=== PATIENT | male | born 1955 | race Caucasian/White ===

== ENCOUNTER 2018-07-27 14:49 | Inpatient (IN) | payer BC ==
[2018-07-27] MEDS ORDERED: Metoclopramide IV* 5 MG/ML 2 ML VIAL IV SLOW PU ONE (15:17)
[2018-07-27] MEDS ORDERED: Famotidine IV * 20 MG in NS 0.9% 100 ML* 100 ML IVPB ONE (15:17)
--- NOTE | 2018-07-27 15:29 | ED ---
Neurological HPI - HPI Summary HPI Summary: Pt is a 62 y/o M presenting to the ED with a chief complaint of a neurological deficit. He states he had an MRI around noontime yesterday, and his PCP called him to inform the patient that he found a prior stroke, and that he is at risk for another. The pt originally had an MRI done because he was having intermittent vision issues with his eyes crossing and vision becoming blurry, lasting a couple of minutes at a time for 1 month. Today, the pt reports he was lethargic, as confirmed by his who stated he has been falling asleep all day, and he became nauseous. When he had his last stroke, the only symptom he experienced was nausea and he couldnt keep anything down that he tried to eat. He also has unsteady gait, onset about 1 week ago described as his head not being coordinated with his body. MONTSE MILLER CALLED: [id number]. Last known well this morning, 07/27/18 0800. The patient states that the sx he has today are not new. They have happened before and they are not acute, so the brain CT will still be done but it will not be as emergently done as a montse miller would have been. - History of Current Complaint Chief Complaint: EDNeurologicalDeficit Stated Complaint: NAUSEA LETHARGIC AND DIZZY PER PT Time Seen by Provider: 07/27/18 14:55 Last Known Well Date: 07/27/18 0800 Hx Obtained From: Patient Onset/Duration: Gradual Onset, Started weeks ago, Still Present Timing: Constant Onset Severity: Moderate Neurological Deficit Location: Generalized Pain Intensity: 0 Pain Scale Used: 0-10 Numeric Character: Motor Weakness, Lethargy, Visual Changes Aggravating: Nothing Alleviating: Nothing Associated Signs and Symptoms: Positive: Unsteady Gait, Visual Changes, Nausea/ Vomiting TPA Considered: No - Allergy/Home Medications Allergies/Adverse Reactions: Allergies Allergy/AdvReac Type Severity Reaction Status Date / Time No Known Allergies Allergy Verified 07/21/18 10:36 Home Medications: Home Medications Atorvastatin* [Lipitor*] 40 mg PO DAILY 07/27/18 [History Confirmed 07/27/18] Benzonatate CAP* [Tessalon 100 MG CAP*] 200 mg PO TID PRN 07/27/18 [History Confirmed 07/27/18] Lisinopril/HCTZ (NF) [Zestoretic 11/25.(NF)] 1 tab PO DAILY 07/27/18 [ History Confirmed 07/27/18] PMH/Surg Hx/FS Hx/Imm Hx Previously Healthy: Yes Endocrine/Hematology History: Denies: Hx Diabetes Cardiovascular History: Reports: Hx Hypertension - CONTROLLED BY MEDICATION Denies: Hx Pacemaker/ICD History: Denies: Hx Renal Disease Sensory History: Denies: Hx Hearing Aid Psychiatric History: Denies: Hx Panic Disorder - Surgical History Surgery Procedure, Year, and Place: TEETH REMOVED Infectious Disease History: No Infectious Disease History: Denies: Traveled Outside the [place] in Last 30 Days - Family History Known Family History: Negative: Cardiac Disease - Social History Lives: With Family Hx Substance Use: No Substance Use Type: Reports: None Review of Systems Positive: Blurred Vision, Other - eyes crossing Positive: Nausea Positive: Other - unsteady gait Neurological: Other - lethargy All Other Systems Reviewed And Are Negative: Yes Physical Exam - Summary Physical Exam Summary: Constitutional: Well-developed, Well-nourished, Alert. (-) Distressed Skin: Warm, Dry HENT: Normocephalic; Atraumatic Eyes: Conjunctiva normal Neck: Musculoskeletal ROM normal neck. (-) JVD, (-) Stridor, (-) Tracheal deviation Cardio: Rhythm regular, rate normal, Heart sounds normal; Intact distal pulses; The pedal pulses are 2+ and symmetric. Radial pulses are 2+ and symmetric. Pulmonary/Chest wall: Effort normal. (-) Respiratory distress, (-) Wheezes, (-) Rales Abd: Soft, (-) tenderness, (-) Distension, (-) Guarding, (-) Rebound Musculoskeletal: (-) Edema Neuro: Alert, Oriented x3, no dysmetria, [id number] intact, cranial nerves II-XII grossly intact, sensation intact. Psych: Mood and affect Normal Triage Information Reviewed: Yes Vital Signs On Initial Exam: Initial Vitals Temp Pulse Resp BP Pulse Ox 98.8 F 53 18 202/92 99 07/27/18 14:52 07/27/18 14:52 07/27/18 14:52 07/27/18 14:52 07/27/18 14:52 Vital Signs Reviewed: Yes - Benoit Coma Scale Best Eye Response: 4 - Spontaneous Best Motor Response: 6 - Obeys Commands Best Verbal Response: 5 - Oriented Coma Scale Total: 15 Diagnostics - Vital Signs Vital Signs Temp Pulse Resp BP Pulse Ox 07/27/18 14:52 98.8 F 53 18 202/92 99 - Laboratory Result Diagrams: 07/27/18 15:30 07/27/18 15:29 Lab Statement: Any lab studies that have been ordered have been reviewed, and results considered in the medical decision making process. - Radiology CXR Radiology Interpretation Completed By: Radiologist Summary of Radiographic Findings: No radiographic evidence for acute cardiopulmonary abnormality on this portable chest x-ray. ED physician has reviewed this report. - CT Brain CT CT Interpretation Completed By: Radiologist Summary of CT Findings: MULTIFOCAL HYPOATTENUATION OF THE LEFT INFERIOR CEREBELLUM CONSISTENT WITH SUBACUTE INFARCT NOTED ON PREVIOUS MRI. ED physician has reviewed this report. - EKG 1616 Cardiac Rate: Bradycardia - 53bpm EKG Rhythm: Sinus Bradycardia ST Segment: Normal Ectopy: None Summary of EKG Findings: EKG at 1616 shows sinus bradycardia at 53bpm with no STEMI. 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 Non-Paretic Hand: Both Correctly Best Gaze (Only Horizontal Eye Movement): Normal Visual Field Testing: No Visual Loss Facial Paresis-Pt to Smile & Close Eyes or Grimace Symmetry: Normal/Symmetrical Motor Function - Right Arm: No Drift-Holds 10 Seconds Motor Function - Left Arm: No Drift-Holds 10 Seconds Motor Function - Right Leg: No Drift-Holds 10 Seconds Motor Function - Left Leg: No Drift-Holds 10 Seconds Limb Ataxia-Must be out of Proportion to Weakness Present: Absent Sensory (Use Pinprick to Test Arms/Legs/Trunk/Face): Normal Best Language (Describe Picture, Name Items): No Aphasia Dysarthria (Read Several Words): Normal Extinction and Inattention: No Abnormality Total Score: 0 Course/Dx - Course Course Of Treatment: Pt is a 62 y/o M presenting to the ED with a chief complaint of a neurological deficit. He states he had an MRI around noontime yesterday, and his PCP called him to inform the patient that he found a prior stroke, and that he is at risk for another. The pt originally had an MRI done because he was having intermittent vision issues with his eyes crossing and vision becoming blurry, lasting a couple of minutes at a time for 1 month. Today, the pt reports he was lethargic, as confirmed by his who stated he has been falling asleep all day, and he became nauseous. When he had his last stroke, the only symptom he experienced was nausea and he couldnt keep anything down that he tried to eat. He also has unsteady gait, onset about 1 week ago described as his head not being coordinated with his body. MONTSE MILLER CALLED: [id number]. Last known well this morning, 07/27/18 0800. The patient states that the sx he has today are not new. They have happened before and they are not acute, so the brain CT will still be done but it will not be as emergently done as a montse miller would have been. Pt's physical exam is normal. CXR shows: No radiographic evidence for acute cardiopulmonary abnormality on this portable chest x-ray. Brain CT shows: MULTIFOCAL HYPOATTENUATION OF THE LEFT INFERIOR CEREBELLUM CONSISTENT WITH SUBACUTE INFARCT NOTED ON PREVIOUS MRI. EKG at 1616 shows sinus bradycardia at 53bpm with no STEMI. Head CTA shows: 1. 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 This corresponds to the arterial distribution to the left cerebellum where multifocal infarcts were identified on the previous day's MRI. 2. 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 This could be due to thrombotic occlusion or congenital absence. 3. There is mixed attenuation atherosclerosis at the bilateral carotid bulbs extending into the inferior portions of the bilateral internal carotid arteries causing approximately 43% degree narrowing on the right and 50 % degree narrowing on the left according to NASCET criteria. Pt will be admitted to Dr. Marin for further workup with dx of CVA. - Diagnoses Provider Diagnoses: CVA (cerebrovascular accident) Discharge - Sign-Out/Discharge Documenting (check all that apply): Patient Departure - Discharge Plan Condition: Stable Disposition: ADMITTED TO [facility] Referrals: Noah Ly MD [Primary Care Provider] - - Attestation Statements Document Initiated by Scribe: Yes Documenting Scribe: Dolly Atkinson Provider For Whom Scribe is Documenting (Include Credential): Neal Cosme MD. Scribe Attestation: Dolly Fox, scribed for Neal Cosme MD. on 07/27/18 at 1857. Consult Consult: 1840 - The pt will be admitted to Dr. Marin for further evaluation and workup. 1856 - Spoke with Dr. Pulido who accepts for admission.
--- OUTSIDE RECORDS SUMMARY | 2018-07-27 15:29 | XMS REPORT | Continuity of Care Document ---
:1955 External Reference #:[id number] Author Name Noah Ly MD Address [address] [place] [address] Care Team Providers Name Role Phone Noah Ly MD Care Team Information Shove Up Unavailable Payers Date Identification Numbers Payment Provider Subscriber Policy Number: [id number] [employer] Faraz Kapoor Group Name: [facility] 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 Tobacco Use Start: Unknown current cigarette 1 ppd smoker ETOH Use Currently consumes 3-4 drinks many weeks alcohol Exercise [facility] [employer] Type/Frequency ref. 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[employer] 100mg Capsules Benzonatate 1 by mouth 45caps J20.9 Noah Aliyah, 07/12/2018 - 200mg three times a MD 07/17/2018 Capsules day for cough Immunizations CPT Code Status Date Vaccine Lot # [id number] Given 11/12/2016 Influenza Virus Vaccine, Quadrivalent, 3 Yr > [id number] Quad, Preserv Free [id number] Given 02/14/2009 Tdap (Adacel) Vital Signs Date Vital Result Comment 07/21/2018 4:29pm Weight 158.00 lb Weight 71.669 kg BP Systolic 124 mmHg BP Diastolic 70 mmHg Heart Rate 56 /min Body Temperature 98.3 F Respiratory Rate 16 /min O2 % BldC Oximetry 98 % 07/12/2018 9:33am Weight 165.00 lb Weight 74.844 kg BP Systolic 112 mmHg BP Diastolic 64 mmHg Heart Rate 68 /min Body Temperature 98.0 F Respiratory Rate 14 /min 12/26/2017 12:57pm Weight 168.00 lb Weight 76.205 kg BP Systolic 118 mmHg BP Diastolic 60 mmHg Heart Rate 62 /min Body Temperature 97.4 F Respiratory Rate 16 /min Height 67.5 inches 5'7.50" BMI (Body Mass Index) 25.9 kg/m2 O2 % BldC Oximetry 97 % 11/15/2017 10:35am Weight 174.00 lb Weight 78.926 kg BP Systolic 140 mmHg BP Diastolic 80 mmHg Heart Rate 64 /min Body Temperature 97.5 F Respiratory Rate 16 /min 12/24/2016 8:14am Weight 170.00 lb Weight 77.112 kg BP Systolic 122 mmHg BP Diastolic 68 mmHg Heart Rate 68 /min Body Temperature 97.1 F Respiratory Rate 16 /min Height 68.5 inches 5'8.50" with shoes BMI (Body Mass Index) 25.5 kg/m2 11/12/2016 9:36am Weight 166.00 lb Weight 75.298 kg BP Systolic 128 mmHg BP Diastolic 70 mmHg Heart Rate 60 /min Body Temperature 96.0 F Respiratory Rate 12 /min Height 67.5 inches 5'7.50" BMI (Body Mass Index) 25.6 kg/m2 Results Test Date Facility Test Result H/L Range Note Laboratory test 07/21/2018 [facility] TSH 0.64 mcIU/ mL N 0.34-5.60 1 finding [phone] (Thyroid Stim Horm) C Reactive Protein 3.02 mg/L N <8.01 2 CBC Auto Diff 07/21/2018 [facility] White Blood 8.9 10^3/uL N 3.5-10.8 [phone] Count Red Blood Count 5.27 10^6/uL N 4.18-5.48 Hemoglobin 15.5 g/dL N 14.0-18.0 Hematocrit 44 % N 42-52 Mean Corpuscular Volume 83 fL N 80-94 Mean Corpuscular Hemoglobin 29 pg N 27-31 Mean Corpuscular HGB Conc 36 g/dL N 31-36 Red Cell Distribution Width 13 % N 10-15 Platelet Count 297 10^3/uL N 150-450 Mean Platelet Volume 7.5 fL N 7.4-10.4 Abs Neutrophils 7.4 10^3/uL N 1.5-7.7 Abs Lymphocytes 1.0 10^3/uL N 1.0-4.8 Abs Monocytes 0.5 10^3/uL N 0-0.8 Abs Eosinophils 0.0 10^3/uL N 0-0.6 Abs Basophils 0.0 10^3/uL N 0-0.2 Abs Nucleated RBC 0.0 10^3/uL Granulocyte % 82.4 % Lymphocyte % 11.0 % Monocyte % 6.0 % Eosinophil % 0.2 % Basophil % 0.4 % Nucleated Red Blood Cells % 0.2 Comp Metabolic Panel 07/21/2018 [facility] Sodium 142 mmol/L N 135-145 [phone] Potassium 3.7 mmol/L N 3.5-5.0 Chloride 101 mmol/L N 101-111 Co2 Carbon Dioxide 28 mmol/L N 22-32 Anion Gap 13 mmol/L High 2-11 Glucose 118 mg/dL High 70-100 Blood Urea Nitrogen 27 mg/dL High 6-24 Creatinine 0.85 mg/dL N 0.67-1.17 BUN/Creatinine Ratio 31.8 High 8-20 Calcium 9.6 mg/dL N 8.6-10.3 Total Protein 6.8 g/dL N 6.4-8.9 Albumin 4.4 g/dL N 3.2-5.2 Globulin 2.4 g/dL N 2-4 Albumin/Globulin Ratio 1.8 N 1-3 Total Bilirubin 0.70 mg/dL N 0.2-1.0 Alkaline Phosphatase 79 U/L N 34-104 Alt 15 U/L N 7-52 Ast 12 U/L Low 13-39 Egfr Non- 91.0 >60 Egfr 110.2 >60 3 Laboratory test 04/03/2018 [facility] PSA Screening 2.057 0-4.0 4 finding [phone] CBC Auto Diff 12/26/2017 [facility] White Blood 7.4 N 3.5-10.8 [phone] Count 10^3/uL Red Blood Count 5.33 10^6/uL N 4.00-5.40 Hemoglobin 15.8 g/dL N 14.0-18.0 Hematocrit 46 % N 42-52 Mean Corpuscular Volume 86 fL N 80-94 Mean Corpuscular Hemoglobin 30 pg N 27-31 Mean Corpuscular HGB Conc 34 g/dL N 31-36 Red Cell Distribution Width 13 % N 10.5-15 Platelet Count 267 10^3/uL N 150-450 Mean Platelet Volume 7.3 fL Low 7.4-10.4 Abs Neutrophils 5.2 10^3/uL N 1.5-7.7 Abs Lymphocytes 1.6 10^3/uL N 1.0-4.8 Abs Monocytes 0.4 10^3/uL N 0-0.8 Abs Eosinophils 0.1 10^3/uL N 0-0.6 Abs Basophils 0.1 10^3/uL N 0-0.2 Abs Nucleated RBC 0 10^3/uL Granulocyte % 70.7 % N 38-83 Lymphocyte % 21.6 % Low 25-47 Monocyte % 5.3 % N 0-7 Eosinophil % 1.5 % N 0-6 Basophil % 0.9 % N 0-2 Nucleated Red Blood Cells % 0.3 Basic Metabolic 12/26/2017 [facility] Sodium 144 mmol /L N 135-145 Panel [phone] Potassium 3.6 mmol/L N 3.5-5.0 Chloride 104 mmol/L N 101-111 Co2 Carbon Dioxide 33 mmol/L High 22-32 Anion Gap 7 mmol/L N 2-11 Glucose 84 mg/dL N 70-100 Blood Urea Nitrogen 19 mg/dL N 6-24 Creatinine 0.94 mg/dL N 0.67-1.17 BUN/Creatinine Ratio 20.2 High 8-20 Calcium 9.5 mg/dL N 8.6-10.3 Egfr Non- 81.1 >60 Egfr 98.1 >60 5 Laboratory 03/28/2017 [facility] Surgical SEE RESULT 6 test finding [phone] Pathology BELOW Laboratory 02/21/2017 [facility] PSA Screening 1.791 ng/mL 0-4.0 7 test finding [phone] Laboratory 12/24/2016 [facility] Hepatitis C Nonreactive Nonreactive 8 test finding [phone] Antibody HIV 1/2 AB 12/24/2016 [facility] HIV 1 2 Nonreactive Nonreactive 9 Evaluation [phone] Antibody Laboratory 12/24/2016 [facility] Hemoglobin 5.4 % N 4.0-5.6 10 test finding [phone] A1c (Glyco HGB) CBC Auto Diff 12/24/2016 [facility] White Blood 7.9 10^3/uL N 3.5-10.8 [phone] Count Red Blood Count 5.24 10^6/uL N 4.0-5.4 Hemoglobin 15.7 g/dL N 14.0-18.0 Hematocrit 45 % N 42-52 Mean Corpuscular Volume 86 fL N 80-94 Mean Corpuscular Hemoglobin 30 pg N 27-31 Mean Corpuscular HGB Conc 35 g/dL N 31-36 Red Cell Distribution Width 13 % N 10.5-15 Platelet Count 233 10^3/uL N 150-450 Mean Platelet Volume 8 um3 N 7.4-10.4 Abs Neutrophils 5.9 10^3/uL N 1.5-7.7 Abs Lymphocytes 1.3 10^3/uL N 1.0-4.8 Abs Monocytes 0.5 10^3/uL N 0-0.8 Abs Eosinophils 0.2 10^3/uL N 0-0.6 Abs Basophils 0.1 10^3/uL N 0-0.2 Abs Nucleated RBC 0.02 10^3/uL Granulocyte % 74.2 % N 38-83 Lymphocyte % 16.3 % Low 25-47 Monocyte % 6.5 % N 1-9 Eosinophil % 2.3 % N 0-6 Basophil % 0.7 % N 0-2 Nucleated Red Blood Cells % 0.3 Comp Metabolic Panel 12/24/2016 [facility] Sodium 140 mmol/L N 133-145 [phone] Potassium 3.9 mmol/L N 3.5-5.0 Chloride 102 mmol/L N 101-111 Co2 Carbon Dioxide 31 mmol/L N 22-32 Anion Gap 7 mmol/L N 2-11 Glucose 135 mg/dL High 70-100 Blood Urea Nitrogen 22 mg/dL N 6-24 Creatinine 0.89 mg/dL N 0.67-1.17 BUN/Creatinine Ratio 24.7 High 8-20 Calcium 9.3 mg/dL N 8.6-10.3 Total Protein 6.6 g/dL N 6.4-8.9 Albumin 4.4 g/dL N 3.2-5.2 Globulin 2.2 g/dL N 2-4 Albumin/Globulin Ratio 2.0 N 1-3 Total Bilirubin 0.50 mg/dL N 0.2-1.0 Alkaline Phosphatase 72 U/L N 34-104 Alt 12 U/L N 7-52 Ast 12 U/L Low 13-39 Egfr Non- 86.6 >60 Egfr 111.4 >60 11 Lipid Profile 12/24/2016 [facility] Triglycerides 74 mg/dL 12 (Trig/Chol/HDL) [phone] Cholesterol 226 mg/dL 13 HDL Cholesterol 53.5 mg/dL 14 LDL Cholesterol 158 mg/dL 15 1 [id number] 3 Because ethnic data is not always readily available, this report includes an eGFR for both -Americans and non- Americans. The National Kidney Disease Education Program (NKDEP) does not endorse the use of the MDRD equation for patients that are not between the ages of 18 and 70, are , have extremes of body size, muscle mass, or nutritional status, or are non- or non-. According to the National Kidney Foundation, irrespective of diagnosis, the stage of the disease is based on the level of kidney function: Stage Description GFR(mL/min/1.73 m(2)) 1 Kidney damage with normal or decreased GFR 90 2 Kidney damage with mild decrease in GFR 60-89 3 Moderate decrease in GFR 30-59 4 Severe decrease in GFR 15-29 5 Kidney failure <15 (or dialysis) 4 Serum levels of PSA measured using the Lukas Yosi DXI Hybritech immunoassay should not be interpreted as absolute evidence of the presence or absence of disease. The PSA value should be used in conjunction with other pertinent clinical diagnostic procedures. The values obtained with different assay methods or kits cannot be used interchangeably. 5 Because ethnic data is not always readily available, this report includes an eGFR for both -Americans and non- Americans. The National Kidney Disease Education Program (NKDEP) does not endorse the use of the MDRD equation for patients that are not between the ages of 18 and 70, are , have extremes of body size, muscle mass, or nutritional status, or are non- or non-. According to the National Kidney Foundation, irrespective of diagnosis, the stage of the disease is based on the level of kidney function: Stage Description GFR(mL/min/1.73 m(2)) 1 Kidney damage with normal or decreased GFR 90 2 Kidney damage with mild decrease in GFR 60-89 3 Moderate decrease in GFR 30-59 4 Severe decrease in GFR 15-29 5 Kidney failure <15 (or dialysis) 6 SEE RESULT BELOW Name: FARAZ KAPOOR : [address]: Cesar Landin MD Acct: [id number] Unit: [id number] AGE: 61 Location: ENDO Re03/28/17 SEX: M Status: REG REF SPEC: [id number] DAGOBERTO: 03/28/17-0853 [facility] DR: Cesar Landin MD REQ: [id number] RECD: 03/28/17 STATUS: ESTIVEN POWELL DR: Noah Ly MD _ ORDERED: LEVEL 4/2 FINAL DIAGNOSIS 1. Colon, at 35 cm, biopsy: -- Hyperplastic polyp. 2. Colon, at 10 cm, biopsy: -- Hyperplastic polyp. CLINICAL HISTORY Screening, average risk POST-OPERATIVE DIAGNOSIS Colonoscopy to cecum ? snare at 10 cm and 35 cm; few tics; 10 years GROSS DESCRIPTION 1. The specimen is received in formalin labeled, Colon Polyp at 35 cm, and consists of a 0.4 x 0.3 x 0.2 cm morales polypoid soft tissue fragment which is inked and submitted entirely in one cassette. 2. The specimen is received in formalin labeled, Biopsy Colon Polyp at 10 cm, and consists of a 0.4 x 0.3 x 0.2 cm morales-pink irregular to polypoid soft tissue fragment which is submitted entirely in one cassette. Signed (signature on file) Desire Hoffmann MD 1013 END OF REPORT * ML=Testing performed at Main Lab DEPARTMENT OF PATHOLOGY, [address] [place] [address] Francisco Hooper M.D. Director [facility] # [id number] 7 Serum levels of PSA measured using the Lukas Fairchance DXI Hybritech immunoassay should not be interpreted as absolute evidence of the presence or absence of disease. The PSA value should be used in conjunction with other pertinent clinical diagnostic procedures. The values obtained with different assay methods or kits cannot be used interchangeably. 8 [id number] 9 It is recognized that currently available assays for the detection of antibodies to HIV-1 and/or HIV-2 may not detect all infected individuals. HIV antibodies may be undetectable in some stages of the infection and in some clinical conditions. The performance of this assay has not been established for populations of infants or children. Assayed by Chemiluminescence Microparticle Immunoassay on the Siemens Advia Centaur CP. Values obtained with different methods or kits cannot be used interchangeably.The diagnostic specificity of the ADVIA Centaur 1/O/2 Enhanced assay in the low risk population was 99.90% (6052/6058) with a 95% confidence interval of 99.78 to 99.96%. 10 Therapeutic target for the treatment of diabetes mellitus patients is <7% HBA1C, and in selective patients <6.0%. Please refer to [place] [employer] Association diabetic care guidelines for further information. 11 Because ethnic data is not always readily available, this report includes an eGFR for both -Americans and non- Americans. The National Kidney Disease Education Program (NKDEP) does not endorse the use of the MDRD equation for patients that are not between the ages of 18 and 70, are , have extremes of body size, muscle mass, or nutritional status, or are non- or non-. According to the National Kidney Foundation, irrespective of diagnosis, the stage of the disease is based on the level of kidney function: Stage Description GFR(mL/min/1.73 m(2)) 1 Kidney damage with normal or decreased GFR 90 2 Kidney damage with mild decrease in GFR 60-89 3 Moderate decrease in GFR 30-59 4 Severe decrease in GFR 15-29 5 Kidney failure <15 (or dialysis) 12 Desirable: <150 Borderline High: 150-199 High: 200-499 Very High: >500 13 Desirable: <200 Borderline High: 200-239 High: >239 14 Low: <40 Desirable: 40-60 High: >60 15 Desirable: <100 Near Optimal: 100-129 Borderline High: 130-159 High: 160-189 Very High: >189 Encounters Type Date Location Provider Dx Diagnosis Office Visit 07/12/2018 Main Office Noah Ly, 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, left eye F17.210 Nicotine dependence, cigarettes, uncomplicated E78.5 Hyperlipidemia, unspecified J20.9 Acute bronchitis, unspecified Office Visit 12/26/2017 1:00p Main Office Noah Ly, Z00.8 Encounter for other general examination I10 Essential (primary) hypertension M25.531 Pain in right wrist Office Visit 11/15/2017 Tiesha Rene S30.861A Insect bite 10:30a Oumar III, (nonvenomous) of 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 wall, init encntr Office Visit 12/24/2016 Main Office Noah Z00.8 Encounter for 8:00a MD Aliyah other general examination Z12.11 Encounter for screening for malignant neoplasm of colon Z11.59 Encounter for screening for other viral diseases J06.9 Acute upper respiratory infection, unspecified I10 Essential (primary) hypertension Z12.5 Encounter for screening for malignant neoplasm of prostate Z12.2 Encntr screen for malignant neoplasm of respiratory organs Office Visit 11/12/2016 9:45a Main Office Noah Ly, I10 Essential (primary) hypertension Z23 Encounter for immunization Plan of Treatment Future Appointment(s):07/28/2018 9:30 am - Noah Ly MD at Main [facility]107/21/2018 - Noah Ly, MDR42 Dizziness and giddinessComments:In addition to his intermittent visual issues he is now increasingly ill. Labs today, CXR MAGNUS, MRI scheduled for next week. I am concerned that there is a serious issue. I discussed his case with SS who is hydro excavation operator this weekend.R05 CoughNew Xrays:Chest PA 2 Views, Ordered: 07/21/18R11.2 Nausea with vomiting, unspecifiedComments:Vomiting in the office today. Losing weight rapidly. still urinating normally.
--- OUTSIDE RECORDS SUMMARY | 2018-07-27 15:29 | XMS REPORT | Continuity of Care Document ---
:1955 External Reference #:[id number] Author Name Noah Ly MD Address [address] [place] [address] Care Team Providers Name Role Phone Noah Ly MD Care Team Information Circulation Assistant Unavailable Payers Date Identification Numbers Payment Provider Subscriber Policy Number: [id number] [employer] Faraz Kapoor Group Name: [facility] 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 [employer]. Tobacco Use Start: Unknown current cigarette 1 ppd smoker ETOH Use Currently consumes 3-4 drinks many weeks alcohol Exercise Exercises regularly [facility]. [employer] Type/Frequency ref. Allergies, Adverse Reactions, Alerts Description No Known Drug Allergies Medications Active Medications SIG Qnty Indications Ordering Provider Date Atorvastatin Calcium 1 by mouth every 90tabs Noah Heetderks, 07/12/2018 40mg day MD Tablets Benzonatate 1 by mouth three 45caps J20.9 Noah Heetderks, 07/12/2018 200mg times a day for MD Capsules cough Lisinopril-Hydrochloro Take One Tablet 30tabs Noah Heetderks, 00 thiazide By Mouth Every MD 10-12.5mg Day Tablets Doxycycline 2 tab by mouth 2caps Edgard Oumar 11/15/2017 Monohydrate once III, SERVICE TESTER-C 100mg Capsules Immunizations CPT Code Status Date Vaccine Lot # [id number] Given 11/12/2016 Influenza Virus Vaccine, Quadrivalent, 3 Yr > [id number] Quad, Preserv Free [id number] Given 02/14/2009 Tdap (Adacel) Vital Signs Date Vital Result Comment 07/12/2018 9:33am Weight 165.00 lb Weight 74.844 [...] Test Result H/L Range Note Laboratory test 04/03/2018 [facility] PSA Screening 2.057 ng/mL 0-4.0 1 finding [phone] CBC Auto Diff 12/26/2017 [facility] White Blood 7.4 10^3/uL N 3.5-10.8 [phone] Count Red Blood Count 5.33 10^6/uL N 4.00-5.40 [...] Blood Cells % 0.3 Basic Metabolic 12/26/2017 [facility] Sodium 144 mmol /L N 135-145 Panel [phone] Potassium 3.6 mmol/L N 3.5-5.0 Chloride 104 mmol/L N 101-111 Co2 Carbon Dioxide 33 mmol/L High 22-32 Anion Gap 7 mmol/L N 2-11 Glucose 84 mg/dL N 70-100 Blood Urea Nitrogen 19 mg/dL N 6-24 Creatinine 0.94 mg/dL N 0.67-1.17 BUN/Creatinine Ratio 20.2 High 8-20 Calcium 9.5 mg/dL N 8.6-10.3 Egfr Non- 81.1 >60 Egfr 98.1 >60 2 Laboratory 03/28/2017 [facility] Surgical SEE RESULT 3 test finding [phone] Pathology BELOW Laboratory 02/21/2017 [facility] PSA Screening 1.791 ng/mL 0-4.0 4 test finding [phone] Laboratory 12/24/2016 [facility] Hepatitis C Nonreactive Nonreactive 5 test finding [phone] Antibody HIV 1/2 AB 12/24/2016 [facility] HIV 1 2 Nonreactive Nonreactive 6 Evaluation [phone] Antibody Laboratory 12/24/2016 [facility] Hemoglobin 5.4 % N 4.0-5.6 7 test finding [phone] A1c (Glyco HGB) CBC Auto Diff 12/24/2016 [facility] White Blood 7.9 10^3/uL N 3.5-10.8 [phone] Count Red Blood Count 5.24 10^6/uL N [...] Cells % 0.3 Comp Metabolic Panel 12/24/2016 [facility] Sodium 140 mmol/L N 133-145 [phone] Potassium 3.9 mmol/L N 3.5-5.0 Chloride 102 [...] Egfr Non- 86.6 >60 Egfr 111.4 >60 8 Lipid Profile 12/24/2016 [facility] Triglycerides 74 mg/dL 9 (Trig/Chol/HDL) [phone] Cholesterol 226 mg/dL 10 HDL Cholesterol 53.5 mg/dL 11 LDL Cholesterol 158 mg/dL 12 1 Serum levels of PSA measured using the [employer] AcuFocus DXI Hybritech immunoassay should not be interpreted as absolute evidence of the presence or absence of disease. The PSA value should be used in conjunction with other pertinent clinical diagnostic procedures. The values obtained with different assay methods or kits cannot be used interchangeably. 2 Because ethnic data is not always readily [...] 15-29 5 Kidney failure <15 (or dialysis) 3 SEE RESULT BELOW Name: FARAZ KAPOOR : [address]: Cesar Landin MD Acct: [id number] Unit: [id number] AGE: 61 Location: ENDO Re03/28/17 SEX: M Status: REG REF SPEC: [id number] DAGOBERTO: 03/28/17-[address]: Cesar Landin MD REQ: [id number] RECD: 03/28/17 STATUS: ESTIVEN POWELL DR: Noah [...] performed at Main Lab DEPARTMENT OF PATHOLOGY, [address] [place] [address] Francisco Hooper M.D. Director [facility] # [id number] 4 Serum levels of PSA measured using the [employer] [place] DXI Hybritech immunoassay should not be interpreted as absolute evidence of the presence or absence of disease. The PSA value should be used in conjunction with other pertinent clinical diagnostic procedures. The values obtained with different assay methods or kits cannot be used interchangeably. 5 [id number] 6 It is recognized that currently available assays [...] 95% confidence interval of 99.78 to 99.96%. 7 Therapeutic target for the treatment of diabetes mellitus patients is <7% HBA1C, and in selective patients <6.0%. Please refer to [place] [employer] diabetic care guidelines for further information. 8 Because ethnic data is not always readily [...] 15-29 5 Kidney failure <15 (or dialysis) 9 Desirable: <150 Borderline High: 150-199 High: 200-499 Very High: >500 10 Desirable: <200 Borderline High: 200-239 High: >239 11 Low: <40 Desirable: 40-60 High: >60 12 Desirable: <100 Near Optimal: 100-129 Borderline High: 130-159 High: 160-189 Very High: >189 Encounters Type Date Location Provider Dx Diagnosis Office Visit 12/26/2017 Main Office Noah Ly Z00.8 Encounter for other 1:00p general examination I10 Essential (primary) hypertension M25.531 Pain in right wrist Office Visit 11/15/2017 Tiesha Rene S30.861A Insect bite 10:30a [place] III, (nonvenomous) of SERVICE 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-C abdominal wall, init encntr Office Visit 12/24/2016 [...] Office Visit 11/12/2016 9:45a Main Office Noah Ly I10 Essential (primary) hypertension Z23 Encounter for immunization Plan of Treatment Future Appointment(s):07/26/2018 9:30 am - Noah Ly MD at Main [facility]7707/12/2018 - Noah Ly MDH49.02 Third [oculomotor] nerve palsy, left eyeNew Xrays:MRI Brain W & W/O Contrast, Scheduled: 07/21/18Comments: He seems to have a weakness of the superior rectus muscle characterized by fatigability.The fact that his weakness is not immediate and seems to worsen after extended use of the muscle implies that it is not a neurologic condition, rather a blood flow issue or other muscular issue. I do not think it is a neuromuscular issue, autoimmune, end plate, etc. 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 We further reviewed that the presence of this small problem could be a warning sign for more severe issues such as heart disease, leg claudication, stroke, etc. under the circumstances I think his erectile issues could follow under the same category.The same factors that should allow resolution of a borderline blood flow issue to superior rectus may prevent further vascular issues in the future. He is interested in beginning this process.Even though I think it is less likely to be aneurologic issue, I still think an MRI would be a reasonable precaution to rule out tumor in the brain or 3rd cranial nerve distribution.Follow up:MRI brain 2 zzwtgC19.210 Nicotine dependence, cigarettes, uncomplicatedComments:We had a good discussion of ways to assist him with the quitting of smoking today. I suggested thatChantix would be a good fit for him, but he prefers not to add more medications and strictly necessary. I advised him that switching from cigarettes to nicotine would actually be taking away a number of chemicals, he has some old nicotine lozenges laying around and will consider using them to help him.E78.5 Hyperlipidemia, unspecifiedComments:He has moderately elevated LDL levels. With his smoking he certainly qualifies above the 10% level of risk over 10 years. With my concern for an active vascular issue, I strongly recommended he start a statin today. He agrees to this.J20.9 Acute bronchitis, unspecifiedNew Medication:Benzonatate 200 mg - 1 by mouth three times a day for coughComments:Symptoms and exam are consistent with acute bronchitis. Discussed that this illness is usually viraland treatment with antibiotics is not the standard of care.Also discussed symptomatic treatment and warning signs of worsening illness.
[2018-07-27 15:41] LABS: ABS Eosinophils 0.1 10^3/ul (0-0.6); ABS Lymphocytes 1.1 10^3/ul (1.0-4.8); ABS Monocytes 0.5 10^3/ul (0-0.8); ABS Neutrophils 5.9 10^3/ul (1.5-7.7); Eosinophil % 0.9 %; Hematocrit 41 % (42-52); Hemoglobin 14.5 g/dL (14.0-18.0); Lymphocyte % 13.9 %; Mean Corpuscular HGB Conc 36 g/dL (31-36); Mean Corpuscular Hemoglobin 30 pg (27-31); Mean Corpuscular Volume 83 fL (80-94); Mean Platelet Volume 7.2 fL (7.4-10.4); Platelet Count 201 10^3/uL (150-450); Red Blood Count 4.92 10^6 /uL (4.18-5.48); Red Cell Distribution Width 13 % (10-15); White Blood Count 7.7 10^3/uL (3.5-10.8)
[2018-07-27 15:46] LABS: Activated Partial Thrombo Time 33.3 seconds (26.0-38.0); INR 1.03 (0.82-1.09)
[2018-07-27] MEDS ORDERED: Lactated Ringers 1000 ML Bag* 1,000 ML IV SCH ×2 (16:00→20:00)
[2018-07-27 16:07] LABS: Albumin 4.1 g/dL (3.2-5.2); Albumin/Globulin Ratio 1.5 (1-3); BUN/Creatinine Ratio 24.3 (8-20); Calcium 9.2 mg/dL (8.6-10.3); EGFR African American 129.3 (>60); EGFR Non-African American 106.8 (>60); Globulin 2.7 g/dL (2-4); HDL Cholesterol 42.1 mg/dL; Potassium 3.8 mmol/L (3.5-5.0); Total Bilirubin 0.7 mg/dL (0.2-1.0); Total Protein 6.8 g/dL (6.4-8.9)
[2018-07-27] MEDS ORDERED: Iohexol 350* (CONTRAST) 500 ML MDV IV ONE (16:42)
--- NOTE | 2018-07-27 17:51 | CONS ---
NEUROLOGY CONSULTATION NOTE: DATE OF CONSULT: 07/27/18 CONSULTED BY: Dr. Neal Cosme. REASON FOR CONSULT: Stroke. CHIEF COMPLAINT: Gait imbalance and nausea. HISTORY OF PRESENT ILLNESS: Mr. Reyes is a 62-year-old left-handed man with history of hypertension, who presented to [facility] ED after having symptoms of nausea, increased fatigue, and unstable gait. The patient stated that the symptoms of gait instability started 2 weeks ago when he was at a trip with his in [place]. He noticed a sudden onset of dizziness. He noticed slight swaying in his gait. He had no falls. Symptoms were on and off , getting worse. They blamed some of the dizziness was related to a bad cold or the decongestant he was using for the upper respiratory illness he had. It was not until last week where the patient started developing nausea. He also recalls having disconjugate gaze a few months ago. His primary care doctor ordered an MRI of the brain, which was completed yesterday 07/26/18 and showed multiple foci of restricted diffusion within the left inferior cerebellum extending into the left middle cerebellar peduncle consistent with a subacute nonhemorrhagic infarction. The patient was placed on aspirin and atorvastatin yesterday. He went shopping for a vehicle today and decided to come to the hospital due to the concern of having worsening stroke symptoms. PAST MEDICAL HISTORY: Hypertension. MEDICATIONS: 1. Benzonatate 200 mg p.o. t.i.d. as needed. 2. Lisinopril/hydrochlorothiazide 10/12.5 one tablet by mouth daily. 3. Atorvastatin 40 mg p.o. daily. ALLERGIES: No known drug allergies. FAMILY HISTORY: Myocardial infarction. There is no family history of stroke or seizures. SOCIAL HISTORY: The patient smoked 1 pack per day for 40 years. He stopped smoking last week. He denied any alcohol or drug use. REVIEW OF SYSTEMS: A 14-point review of systems was obtained and otherwise negative except for what was mentioned in the HPI. PHYSICAL EXAM: Vitals: Temperature 98.8, pulse of 53, respiratory rate of 18, oxygen saturation of 99%, blood pressure of 202/92. General: Well-nourished, well- developed man, in no acute distress. Head: Normocephalic, atraumatic without any obvious abnormality. Eyes: Conjunctivae/corneas are clear. Neck is supple and symmetrical with no carotid bruits, no lymphadenopathy. Lungs: Clear to auscultation bilaterally, nonlabored breathing. Cardiovascular: Regular rate and rhythm with normal S1, S2. Extremities: Normal range of motion with no cyanosis. Skin: No skin lesions or lacerations. Psych: Affect is broad and normal mood. Easy to establish a rapport. Neurological Examination : Mental Status: Awake, alert, and oriented to person, place, time, and general circumstances. The patient has ybpn-gs-iyrmrugg dysarthria. Cranial Nerves: Normal confrontation testing bilaterally. Extraocular muscles are intact. Sensation is intact on the forehead, cheeks, and jaw region bilaterally. There is no facial droop. He is able to hear throughout the history process. Normal strength against shoulder resistance. Tongue is symmetrical and midline. Motor: No abnormal movements or pronator drift. Normal bulk and tone throughout. He has got 5/5 strength in the upper and lower extremities. Reflexes: Right/left, brachioradialis 1/1, biceps 1/1, triceps 1/1, patella 1/1, ankle 1/1, plantar flexor/mute. Sensation is intact to light touch throughout. Normal vibration at the toes bilaterally. Coordination: He has got dysmetria to pqnrhi-ex-cgou and qdsf-ts-fnna testing on the left. Gait and station: Mild ataxia and swaying towards the left side. NIH Stroke Scale is 3, 2 points for ataxia in 2 limbs and 1 point for mild-to- moderate dysarthria. ASSESSMENT AND RECOMMENDATIONS: Mr. Anjel Reyes is a 62-year-old man who has symptoms of nausea, gait imbalance, and fatigue on and off for the last 2 weeks, who was found to have a left acute to subacute cerebellar stroke. 1. Acute-subacute inferior cerebellar ischemic stroke, which I suspect is related to thrombosis of the posterior inferior cerebellar artery. Other possible etiology is cardioembolic phenomenon. The patient was started on aspirin 81 mg yesterday. I recommend starting the patient on dual antiplatelet therapy with aspirin and Plavix. I recommend obtaining a stat CTA head and neck to evaluate for large vessel occlusions especially in the basal artery. Please obtain a transthoracic echo with bubble study. 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 Slowly decrease his blood pressure to normal range within the next 24 hours. We can restart his oral antihypertensive agents. Admit under the hospitalist service. Stroke education was completed with the patient and his spouse. I encouraged the patient to continue smoking cessation and to closely monitor his blood pressure from now on. DVT prophylaxis with heparin 5000 units subcu every 8 hours. 2. Hypertensive. Restart his antihypertensive agents with a normotensive blood pressure goal. [id number]/[facility] #: [id number] URIEL
[2018-07-27] MEDS ORDERED: Acetaminophen TAB* 325 MG PO PRN (19:55)
[2018-07-27] MEDS ORDERED: Ondansetron INJ* 2 MG/ML VIAL IV PRN (19:55)
[2018-07-27] MEDS ORDERED: hydrALAZINE IV* 20 MG/ML VIAL IV SLOW PU PRN (20:24)
[2018-07-27 21:12] LABS: Urine Appearance Clear; Urine Bacteria Absent (Absent); Urine Bilirubin Negative (Negative); Urine Blood 1+ (Negative); Urine Color Yellow; Urine Glucose Negative (Negative); Urine Ketones Negative (Negative); Urine Nitrite Negative (Negative); Urine Protein Negative (Negative); Urine Red Blood Cell 3+(>10/hpf) (Absent); Urine Specific Gravity 1.054 (1.010-1.030); Urine Squamous Epithelial Cell Present (Absent); Urine Urobilinogen Negative (Negative); Urine White Blood Cell Trace(0-5/hpf) (Absent)
[2018-07-27] MEDS: Enoxaparin(*) 40 MG/0.4 ML SYR SUBCUT SCH (21:29)
--- NOTE | 2018-07-28 00:29 | HP ---
CC: Dr. Noah Ly; Dr. Albert Marin * HISTORY AND PHYSICAL: DATE OF ADMISSION: 07/28/18 PRIMARY CARE PROVIDER: Dr. Noah Ly. ATTENDING PHYSICIAN: Dr. Jackie Pulido * (dictated by Chayo Iqbal NP). CHIEF COMPLAINT: Nausea and unsteady gait. HISTORY OF PRESENT ILLNESS: Mr. Reyes is a 62-year-old male with history of hypertension who presents with emergency room today with nausea, fatigue, and unsteady gait. The patient couple of months ago reportedly started experiencing transient difficulty with vision. He was concerned about this and visited his primary care provider, who placed him on atorvastatin and was concerned that the patient's difficulty with vision was due to his smoking history. The patient did stop smoking at that point. Approximately 2 weeks ago , he started developing an unsteady gait secondary to dizziness as well as nausea and vomiting. The patient's reports that last week he was having difficulty keeping any oral intake down, though over the last couple of days has been eating better. He awoke this morning and was very lethargic which caused concern with him and his . The does note that he has had some difficulty with his left hand as far as coordinating movement. The patient did have an MRI yesterday that was ordered by his primary care provider and that MRI reads as "multiple foci of restricted diffusion within left inferior cerebellum extending to the left middle cerebellar peduncle consistent with subacute nonhemorrhagic infarct." Because of these concerns, the patient and his presented to the emergency room today. In the emergency room, he was noted to have lab work which was essentially normal, although he is noted have an elevated LDL at 107. He had a brain CT which showed findings consistent with a subacute infract as noted on the previous MRI. He was additionally noted be bradycardic and moderately hypertensive. The hospitalist service was asked to evaluate for admission. PAST MEDICAL HISTORY: 1. Hypertension. PAST SURGICAL HISTORY: None. HOME MEDICATIONS: 1. Atorvastatin 40 mg p.o. daily. 2. Tessalon 200 mg p.o. t.i.d. p.r.n. cough. 3. Lisinopril/hydrochlorothiazide 10/12.5 mg 1 tab p.o. daily. ALLERGIES: No known drug allergies. FAMILY HISTORY: The patient's mother is 94 and does have atrial fibrillation. His father had his first NC at 56 and multiple MIs thereafter. He ultimately had 2 quadruple bypasses and at the age of 87. SOCIAL HISTORY: The patient has a [id number]-trqv smoking history. He did quit last week. He denies any alcohol or recreational drug use. He lives at home with his , Meghan, who will be his surrogate decision maker in the event he is unable to make his own decisions. REVIEW OF SYSTEMS: An 11-point review of systems was performed and all the pertinent positive and negative findings are in the HPI. All other systems are negative. PHYSICAL EXAMINATION GENERAL: Mr. Reyes is a well-developed, well-nourished white male, lying in bed, in no acute distress. He appears his stated age. VITAL SIGNS: Temp 98.8, heart rate 56, respiratory rate 12, oxygen saturation 90 % on room air, blood pressure 150/76. HEENT: Head is atraumatic, normocephalic. Visual damian are grossly intact. Pupils equal, round, and reactive to light and accommodation. Extraocular movements are intact. Hearing is grossly intact. Oral mucous membranes are moist and without lesions. NECK: Full range of motion. Thyroid not palpable. Trachea midline. No lymphadenopathy. RESPIRATORY: Symmetrical chest expansion. No chest wall deformities. Lungs clear to auscultation throughout. No rhonchi, wheezes, or rales. CARDIOVASCULAR: Bradycardic with a regular rhythm. S1, S2 present. No murmurs , rubs, or gallop. No JVD. ABDOMEN: Soft, nontender to palpations. Bowel sounds normoactive throughout. No hepatosplenomegaly. EXTREMITIES: Skin warm and smooth bilaterally. No edema. No clubbing or cyanosis. Pedal pulses 2+ bilaterally. MUSCULOSKELETAL: Full range of motion. No pain or deformities. NEUROLOGIC: Awake, alert, and oriented x4, though drowsy. Cranial nerves II through XII are grossly intact. Moves all extremities. Motor strength is 5/5 in upper and lower extremities bilaterally. Gait was not tested. SKIN: Grossly intact without lesions. DIAGNOSTIC STUDIES/LABORATORY DATA: WBCs 7.7, RBCs 4.92, hemoglobin 14.5, hematocrit 41, platelets 201. INR 1.03. Sodium 143, potassium 3.8, chloride 104, carbon dioxide 33, BUN 18, creatinine 0.74, glucose 101, lactic acid 0.9. Troponin 0.00. Triglycerides 120, total cholesterol 173, LDL 107, HDL 42. Brain CT reads as multifocal hypoattenuation of the left inferior cerebellum consistent with subacute infarct as noted on a previous MRI. Chest x-ray reads as no radiographic evidence for acute cardiopulmonary abnormality. EKG shows sinus bradycardia with a rate of 53, QTc 413, Q-waves present in aVL, inverted T-waves in V1. There is no prior EKG for comparison. Head CTA reads as there is occlusion of the intracranial segment of the left vertebral artery and little to no filling of the left posterior inferior cerebellar artery. This corresponds to the arterial distribution to the left cerebellum where multifocal infracts were identified on the previous day's MRI. There is absence of the left posterior communicating artery causing the pauma of Watson to be incomplete. This could be due to thrombotic occlusion or congenital absence. There is mixed attenuation as well as sclerosis at the bilateral carotid bulbs extending into the inferior portion of the bilateral internal carotid artery causing approximately 43% narrowing on the right and 50 % degree narrowing on the left according to NASCET criteria. ASSESSMENT AND PLAN: Mr. Reyes is a 62-year-old male with past medical history of hypertension who presented to the emergency room today with complaints of lethargy, nausea, and unsteady gait and was found to have a subacute cerebrovascular accident. The patient will be admitted to observation for: 1. Cerebellar cerebrovascular accident. The patient was seen in the emergency room by Dr. Marin, who felt as though this cerebrovascular accident was related to thrombosis of the posterior inferior cerebellar artery. He recommended placing the patient on dual antiplatelet therapy with aspirin and Plavix, which I have ordered. He additionally recommended a transthoracic echo with bubble study and PT/OT and speech evaluation, all of which I have ordered. I have additionally ordered q.4 neuro checks and the patient will be placed on telemetry, although there is very little suspicion for any atrial fibrillation. The patient was noted to have an elevated LDL of 107 and he had previously been on 40 mg daily of atorvastatin. I have increased at 80 mg at this point for better lipid control. 2. Hypertension. The patient is slightly hypertensive in the emergency room. At this point, systolic is 150, though he was noted to have a systolic in the 200s on arrival. He does admit that he has not taken his antihypertensives in the last few days due to nausea. Dr. Marin did recommend restarting the patient 's antihypertensives and slowly decreasing his blood pressure to a normal range within the next 24 hours. I have restarted his lisinopril/hydrochlorothiazide for the morning. I will additionally order some IV hydralazine for systolic pressure greater than 170. 3. FEN: I will place the patient on lactated Ringer's 75 mL/hour at this point as he has had poor p.o. intake over the last week. He does not require any electrolyte repletion at this time. I have ordered a regular diet. 4. Code status: The patient will be a full code. 5. DVT prophylaxis. According to the DVT risk assessment, the patient scores a 2, putting him at moderate risk. I have ordered Lovenox. TIME SPENT: Approximately 60 minutes was spent on this admission, greater than half of that time was spent [id number] with the patient and his obtaining my history, performing my physical exam, and reviewing the plan of care. The case has been reviewed with my attending, Dr. Pulido, who is in agreement with the plan of care. CHAYO IQBAL NP [id number]/[facility] #: [id number] URIEL
[2018-07-28 07:32] LABS: ABS Basophils 0.1 10^3/ul (0-0.2); ABS Eosinophils 0.1 10^3/ul (0-0.6); ABS Lymphocytes 1.2 10^3/ul (1.0-4.8); ABS Monocytes 0.5 10^3/ul (0-0.8); ABS Neutrophils 4.5 10^3/ul (1.5-7.7); Eosinophil % 1.9 %; Hematocrit 37 % (42-52); Hemoglobin 13.2 g/dL (14.0-18.0); Lymphocyte % 18.4 %; Mean Corpuscular HGB Conc 36 g/dL (31-36); Mean Corpuscular Hemoglobin 30 pg (27-31); Mean Corpuscular Volume 83 fL (80-94); Mean Platelet Volume 7.2 fL (7.4-10.4); Nucleated Red Blood Cells % 0.1; Platelet Count 175 10^3/uL (150-450); Red Blood Count 4.44 10^6 /uL (4.18-5.48); Red Cell Distribution Width 13 % (10-15); White Blood Count 6.4 10^3/uL (3.5-10.8)
[2018-07-28 07:45] LABS: BUN/Creatinine Ratio 19.7 (8-20); Calcium 8.5 mg/dL (8.6-10.3); EGFR African American 135.6 (>60); EGFR Non-African American 112.1 (>60); Potassium 3.5 mmol/L (3.5-5.0)
[2018-07-28] MEDS: Aspirin 81 mg CHEW TAB* 81 MG TAB.CHEW PO SCH (09:36)
[2018-07-28] MEDS: Hydrochlorothiazide TAB* 25 MG PO SCH (09:36)
[2018-07-28] MEDS: Lisinopril TAB* 10 MG PO SCH (09:36)
[2018-07-28] MEDS: Atorvastatin* 80 MG TAB PO SCH (09:36)
[2018-07-28] MEDS ORDERED: Potassium Chlor TAB* 20 MEQ TAB.ER PO ONE (10:35)
[2018-07-28] MEDS: Clopidogrel TAB* 75 MG PO SCH (10:46)
--- NOTE | 2018-07-28 13:32 | ECHO ---
*[facility]* [place] [address] Fax #: [phone] Transthoracic Echocardiogram Patient: Eric Height: 68 in / Anjel 172.7 cm : 1955 Weight: 159.7 lb / Study Date: 07/28/2018 72.6 kg Age: 62 BP: 154 / 75 Gender: M BMI/BSA: 24.3 kg/m^2 HR: 48 bpm / 1.87 m^2 *Blaster Helper: * Nicki Devi RDCS RN *Referring Physician: * Chayo Iqbal *Reading Physician: * Carlo Esparza MD Indications: CVA. History: Risk factors: Current tobacco use. Hypertension. Conclusions Summary: 1. Left ventricle: The cavity size is normal. Wall thickness is mildly increased. Systolic function is hyperdynamic. The estimated ejection fraction is 65-70%. Wall motion is normal; there are no regional wall motion abnormalities. 2. Left atrium: The atrium is mildly dilated. 3. Right atrium: The atrium is mildly dilated. 4. Functionally benign heart valves. 5. Atrial septum: No defect or patent foramen ovale is identified. 6. There is no prior echocardiogram available to compare with at this time. Study data: Transthoracic echocardiogram. Procedure: Transthoracic echocardiography was performed. Image quality was good. A bubble study was performed on Images 128 and 129. Complete 2D, spectral Doppler, and color flow Doppler. Patient status: Observation. Patient room number: 440. Rhythm: Bradycardia. Findings Left ventricle: The cavity size is normal. Wall thickness is mildly increased. Systolic function is hyperdynamic. The estimated ejection fraction is 65-70%. Wall motion is normal; there are no regional wall motion abnormalities. There is no consistent Doppler evidence of clinically significant diastolic dysfunction. Right ventricle: The cavity size is normal. Systolic function is normal. Left atrium: The atrium is mildly dilated. Right atrium: The atrium is mildly dilated. Atrial septum: No defect or patent foramen ovale is identified. Bubble study was negative. Images 128 and 129. Mitral valve: The leaflets are mildly thickened. There is trace regurgitation. Aortic valve: The valve is trileaflet. The leaflets are mildly thickened. There is no evidence of stenosis. There is no regurgitation. Tricuspid valve: The valve is structurally normal. There is trace regurgitation. Pulmonic valve: The valve is structurally normal. There is no evidence of stenosis. There is trace regurgitation. Aorta: Ascending aorta: The ascending aorta is not dilated. Aortic arch: The aortic arch is appears normal. The aortic root is not dilated. Pericardium: There is no significant pericardial effusion. Pulmonary arteries: The main pulmonary artery is normal-sized. Systolic pressure can not be accurately estimated. Systemic veins: Inferior vena cava: The vessel is normal in size. The respirophasic diameter changes are in the normal range (>= 50%). Measurements Left ventricle Value Ref Aortic valve Value Ref AGNES, LAX (L) 3.7 cm 4.2 - 5.8 Peak v, S 1.55 m/sec ---- ESD, LAX (L) 2.0 cm 2.5 - 4.0 VTI, S 38.8 cm ---- FS, LAX (H) 47 % 25 - 43 Mean grad, S 6.4 mm Hg ---- PW, ED, LAX (H) 1.2 cm 0.6 - 1.0 Peak grad, S 9.6 mm Hg ---- IVS/PW, ED 1.16 --------- LVOT/AV, VTI ratio 0.79 ---- E', lat abdifatah, TDI 10.0 cm/sec >=10.0 E/e', lat abdifatah, TDI 9 --------- Mitral valve Value Ref E', med abdifatah, TDI 9.0 cm/sec >=7.0 Peak E 0.88 m/sec -- -- E/e', med abdifatah, TDI 10 --------- Peak A 0.99 m/sec ---- E', avg, TDI 9.5 cm/sec --------- Decel time 228 ms ---- E/e', avg, TDI 9 <=14 Peak grad, D 3.1 mm Hg -- -- Peak E/A ratio 0.89 ---- LVOT Value Ref Peak rebecca, S 1.23 m/sec --------- Pulmonic valve Value Ref VTI, S 30.6 cm --------- Peak v, S 1.09 m/sec ---- Peak grad, S 6 mm Hg --------- Peak grad, S 4.8 mm Hg ---- Mean grad, S 3 mm Hg --------- Aortic root Value Ref Ventricular septum Value Ref Root diam 3.2 cm <4.0 IVS, ED (H) 1.4 cm 0.6 - 1.0 Ascending aorta Value Ref Right ventricle Value Ref AAo AP diam, S 2.9 cm ---- AGNES, LAX 3.6 cm --------- AGNES major ax, A4C (L) 3.7 cm 5.9 - 8.3 Aortic arch Value Ref Arch diam 2.5 cm ---- Left atrium Value Ref SI dim ES, LAX 4.0 cm --------- Decending aorta Value Ref ML dim, A4C 3.8 cm --------- Karlee peak rebecca 0.67 m/sec ---- SI dim, A4C 5.4 cm --------- Vol, ES, 2-p 68 ml --------- Inferior vena cava Value Ref Vol/bsa, ES, 2-p (H) 36 ml/m^2 16 - 34 Diam 2.0 cm ---- Right atrium Value Ref ML dim, ES, A4C (H) 4.6 cm 2.6 - 4.4 SI dim, ES, A4C 5.1 cm 3.4 - 5.3 Estimated RAP 3 mm Hg --------- Legend: (L) and (H) cayetano values outside specified reference range. Prepared and electronically signed by Carlo Esparza MD 07/28/2018 13:32
--- NOTE | 2018-07-28 16:16 | PN ---
Subjective Date of Service: 07/28/18 Interval History: Patient lying in bed with at bedside. Patient has eyes closed reporting it is more comfortable to have eye closed and "not take everything in". Reports he continues to feel fatigued. Reports he has had intermittent double vision and dizziness over the past week or so, but does not have it currently. Denies cp palpitations, nausea, vomiting. Objective Active Medications: Acetaminophen (Tylenol Tab*) 650 mg PO Q4H PRN PRN Reason: FEVER/PAIN Aspirin (Aspirin 81 Mg Chew Tab*) 81 mg PO DAILY [facility] Last Admin: 07/28/18 09:36 Dose: 81 mg Atorvastatin Calcium (Lipitor*) 80 mg PO DAILY [facility] Last Admin: 07/28/18 09:36 Dose: 80 mg Clopidogrel Bisulfate (Plavix Tab*) 75 mg PO DAILY [facility] Last Admin: 07/28/18 10:46 Dose: 75 mg Enoxaparin Sodium (Lovenox(*)) 40 mg SUBCUT Q24H [facility] Last Admin: 07/27/18 21:29 Dose: 40 mg Hydralazine HCl (Apresoline Iv*) 5 mg IV SLOW PU Q6H PRN PRN Reason: Systolic Bp Greater Than: 170 Hydrochlorothiazide (Hydrodiuril Tab*) 12.5 mg PO DAILY [facility] Last Admin: 07/28/18 09:36 Dose: 12.5 mg Lactated Ringer's (Lactated Ringers 1000 Ml Bag*) 1,000 mls @ 75 mls/hr IV PER RATE [facility] Last Admin: 07/28/18 05:34 Dose: 75 mls/hr Lisinopril (Prinivil Tab*) 10 mg PO DAILY [facility]; Protocol Last Admin: 07/28/18 09:36 Dose: 10 mg Ondansetron HCl (Zofran Inj*) 4 mg IV Q4H PRN PRN Reason: NAUSEA/VOMITING Vital Signs - 8 hr 07/28/18 15:42 Temperature 98.1 F Pulse Rate 51 Respiratory 16 Rate Blood Pressure 160/75 (mmHg) O2 Sat by Pulse 97 Oximetry Oxygen Devices in Use Now: None Appearance: Comfortable, NAD Eyes: No Scleral Icterus, PERRLA Ears/Nose/Mouth/Throat: Clear Oropharnyx, Mucous Membranes Moist Neck: NL Appearance and Movements; NL JVP Respiratory: Symmetrical Chest Expansion and Respiratory Effort, Clear to Auscultation Cardiovascular: NL Sounds; No Murmurs; No JVD, RRR, No Edema Abdominal: NL Sounds; No Tenderness; No Distention Lymphatic: No Cervical Adenopathy Extremities: No Clubbing, Cyanosis Skin: No Rash or Ulcers Neurological: Alert and Oriented x 3, NL Sensation, - - Cranial nerves 2 thru 12 grossly intact. Coordinatin impaired slightly on left, but intact on right. Strength in UE noted to be slightly weaker on left. Strength in LE equal. Nutrition: Taking PO's Result Diagrams: 07/28/18 07:07 07/28/18 07:07 Additional Lab and Data: Laboratory Results - last 24 hr 07/27/18 07/28/18 07/28/18 20:08 07:07 07:07 WBC 6.4 RBC 4.44 Hgb 13.2 L Hct 37 L MCV 83 MCH 30 MCHC 36 RDW 13 Plt Count 175 MPV 7.2 L Neut % (Auto) 71.3 Lymph % (Auto) 18.4 [place] % (Auto) 7.5 Eos % (Auto) 1.9 Baso % (Auto) 0.9 Absolute Neuts (auto) 4.5 Absolute Lymphs (auto) 1.2 Absolute Monos (auto) 0.5 Absolute Eos (auto) 0.1 Absolute Basos (auto) 0.1 Absolute Nucleated RBC 0.0 Nucleated RBC % 0.1 Sodium 141 Potassium 3.5 Chloride 106 Carbon Dioxide 32 Anion Gap 3 BUN 14 Creatinine 0.71 Est GFR ( Amer) 135.6 Est GFR (Non-Af Amer) 112.1 BUN/Creatinine Ratio 19.7 Glucose 105 H Calcium 8.5 L Urine Color Yellow Urine Appearance Clear Urine pH 6.0 Ur Specific [place] 1.054 H Urine Protein Negative Urine Ketones Negative Urine Blood 1+ A Urine Nitrate Negative Urine Bilirubin Negative Urine Urobilinogen Negative Ur Leukocyte Esterase Negative Urine WBC (Auto) Trace(0-5/hpf) Urine RBC (Auto) 3+(>10/hpf) A Ur Squamous Epith Cells Present A Urine Bacteria Absent Urine Glucose Negative Microbiology and Other Data: . Assess/Plan/Problems-Billing Assessment: 62 yr old male with pmh of htn; who presented with transcient dizziness and double vision and was found to have inferior cerebellar ischemic infarct - Patient Problems (1) Cerebellar stroke Comment: - Continues to have fatigue and unsteady gait. Has intermittent episodes of dizziness and double visin. Denies nausea which he was experiencing previously. - Dual antiplatelet therapy x 30 days then ASA alone. Patient states understanding. - PT/OT recommending rehab. PMRU consult ordered - No septum defect or PFO on echo. EF 65 to 70% (2) Hypertension Comment: - Cont HCTZ/Lisinopril which patient was on at home. - Per Dr Marin patient should have normotensive blood pressure goal (3) Tobacco abuse Comment: - Discussed importance of quiting. - Reports he is in the process of quiting and has not smoked in 10 to 11 days. (4) Hyperlipidemia Comment: - Previously on 40 mg daily of Atorvastin. - Increased to 80 mg daily on admisson. (5) DVT prophylaxis Comment: - Lovenox Status and Disposition: Inpatient. TRAMAINE or PMRU at discharge Attending: Pancho Hewitt
--- NOTE | 2018-07-28 16:34 | PN ---
Subjective Date of Service: 07/28/18 Length of Stay: 1 Days Neurology is following for the evaluation of stroke. Interval History: He is resting comfortable. He still complains of double vision. He doesn't like to give eye contact because he feels "cross eyed." He is upset about his symptoms and deficits but feels like he will regain some independence in the near future. He is optimistic and wants to get better. NIHSS 3 Cholesterol: 173 LDL: 107 HDL:42.1 CT head without contrast 07/27/2018: Multifocal hypoattenuation of the left inferior cerebellum consistent with subacute infarct MRI brain without contrast 07/26/2018: Multiple foci of restricted diffusion within the left inferior cerebellum entending to the left middle cerebellar peduncle consistent with subacute nonhemorrhagic infarct. CTA head and neck 07/27/2018: left verteberal artery occlusion with no filling of the left PICA, corresponds to the arterial distribution of the left cerebellum where he has multifocal infarcts. 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 Could be related to a thrombotic occlusion or congenital absence. No significant ICA stenosis. TTE 07/27/2018: EF 65-70%. left atrium mildly dilated. No PFO. Review of Systems: Denied CP, SOB, or palpitations. Objective Active Medications: Acetaminophen (Tylenol Tab*) 650 mg PO Q4H PRN PRN Reason: FEVER/PAIN Aspirin (Aspirin 81 Mg Chew Tab*) 81 mg PO DAILY [facility] Last Admin: 07/28/18 09:36 Dose: 81 mg Atorvastatin Calcium (Lipitor*) 80 mg PO DAILY [facility] Last Admin: 07/28/18 09:36 Dose: 80 mg Clopidogrel Bisulfate (Plavix Tab*) 75 mg PO DAILY [facility] Last Admin: 07/28/18 10:46 Dose: 75 mg Enoxaparin Sodium (Lovenox(*)) 40 mg SUBCUT Q24H [facility] Last Admin: 07/27/18 21:29 Dose: 40 mg Hydralazine HCl (Apresoline Iv*) 5 mg IV SLOW PU Q6H PRN PRN Reason: Systolic Bp Greater Than: 170 Hydrochlorothiazide (Hydrodiuril Tab*) 12.5 mg PO DAILY [facility] Last Admin: 07/28/18 09:36 Dose: 12.5 mg Lactated Ringer's (Lactated Ringers 1000 Ml Bag*) 1,000 mls @ 75 mls/hr IV PER RATE [facility] Last Admin: 07/28/18 05:34 Dose: 75 mls/hr Lisinopril (Prinivil Tab*) 10 mg PO DAILY [facility]; Protocol Last Admin: 07/28/18 09:36 Dose: 10 mg Ondansetron HCl (Zofran Inj*) 4 mg IV Q4H PRN PRN Reason: NAUSEA/VOMITING Vital Signs 07/27/18 07/27/18 07/27/18 16:48 17:13 17:19 Temperature Pulse Rate 70 57 Respiratory 13 13 13 Rate Blood Pressure 184/80 157/59 (mmHg) O2 Sat by Pulse 93 95 Oximetry 07/27/18 07/27/18 07/27/18 17:49 18:00 18:19 Temperature Pulse Rate 52 54 64 Respiratory 15 14 16 Rate Blood Pressure 159/65 149/62 (mmHg) O2 Sat by Pulse 89 87 89 Oximetry 07/27/18 07/27/18 07/27/18 18:49 19:00 19:19 Temperature Pulse Rate 48 56 55 Respiratory 7 6 12 Rate Blood Pressure 168/77 150/76 (mmHg) O2 Sat by Pulse 93 92 90 Oximetry 07/27/18 07/27/18 07/27/18 19:49 20:00 20:18 Temperature Pulse Rate 69 67 Respiratory 16 12 12 Rate Blood Pressure 157/76 154/78 (mmHg) O2 Sat by Pulse 97 98 Oximetry 07/27/18 07/27/18 07/27/18 20:48 21:01 21:10 Temperature 98.4 F 97.1 F Pulse Rate 52 54 51 Respiratory 3 18 14 Rate Blood Pressure 179/74 179/74 150/49 (mmHg) O2 Sat by Pulse 96 96 95 Oximetry 07/27/18 07/28/18 07/28/18 23:53 04:09 07:26 Temperature 97.7 F 98.3 F 97.8 F Pulse Rate 51 58 51 Respiratory 14 14 16 Rate Blood Pressure 148/66 154/75 138/60 (mmHg) O2 Sat by Pulse 95 99 94 Oximetry 07/28/18 07/28/18 08:00 15:42 Temperature 98.1 F Pulse Rate 51 Respiratory 16 16 Rate Blood Pressure 160/75 (mmHg) O2 Sat by Pulse 94 97 Oximetry Intake and Output Last 24 Hours 06/12/19 06/13/19 06/14/19 06/15/19 06:59 06:59 06:59 06:59 Intake Total 1342 920 Output Total 0 Balance 1342 920 Weight 164 lb 8 oz Intake: IV Fluids 1102 Oral 240 920 Output: Urine 0 Other: # Voids 4 Oxygen Devices in Use Now: None Neurology Exam: General: Well nourished, well developed, and in no acute distress HEENT: Normocephelic/atraumatic, sclera anicteric, mucous membranes moist Neck: Supple Chest: Clear to auscultation bilaterally Cardiovascular: Regular rate and rhythm without murmurs, rubs, gallops Abdomen: Soft, non-tender/non-distended Extremities: No clubbing, cyanosis, or edema Neurological Findings: Awake, alert, and oriented to person, place, and time. Speech: mild-moderate dysarthria. Cranial Nerve: PERRL, dysconjugate gaze with continuous horizontal beat nystagmus towards the left. No facial asymmetry. Motor: 5- on the left and 5/5 on the right. Sensation: intact to LT/PP bilaterally upper and lower extremities Deep Tendon Reflex: 2+ on the left and 1+ on the right. Extensor plantar response on the left. FTN and HTC dysmetria on the left. Gait: wide based and swaying towards the left. Result Diagrams: 07/28/18 07:07 07/28/18 07:07 Additional Lab and Data: Laboratory Results - last 24 hr 07/27/18 07/28/18 07/28/18 20:08 07:07 07:07 WBC 6.4 RBC 4.44 Hgb 13.2 L Hct 37 L MCV 83 MCH 30 MCHC 36 RDW 13 Plt Count 175 MPV 7.2 L Neut % (Auto) 71.3 Lymph % (Auto) 18.4 [place] % (Auto) 7.5 Eos % (Auto) 1.9 Baso % (Auto) 0.9 Absolute Neuts (auto) 4.5 Absolute Lymphs (auto) 1.2 Absolute Monos (auto) 0.5 Absolute Eos (auto) 0.1 Absolute Basos (auto) 0.1 Absolute Nucleated RBC 0.0 Nucleated RBC % 0.1 Sodium 141 Potassium 3.5 Chloride 106 Carbon Dioxide 32 Anion Gap 3 BUN 14 Creatinine 0.71 Est GFR ( Amer) 135.6 Est GFR (Non-Af Amer) 112.1 BUN/Creatinine Ratio 19.7 Glucose 105 H Calcium 8.5 L Urine Color Yellow Urine Appearance Clear Urine pH 6.0 Ur Specific [place] 1.054 H Urine Protein Negative Urine Ketones Negative Urine Blood 1+ A Urine Nitrate Negative Urine Bilirubin Negative Urine Urobilinogen Negative Ur Leukocyte Esterase Negative Urine WBC (Auto) Trace(0-5/hpf) Urine RBC (Auto) 3+(>10/hpf) A Ur Squamous Epith Cells Present A Urine Bacteria Absent Urine Glucose Negative Microbiology and Other Data: . Assessment/Plan 1. Acute left cerebellar stroke in the posterior inferior cerebellar artery distribution: most likely related to atherosclerotic disease causing vessel thrombosis. - Risk factors: Hypertension, former tobacco abuse (quit 10 days ago), and dyslipidemia - NIHSS: 3 today - Recommendations: DAPT with aspirin 81 mg and Plavix 75 mg x 30 days. Discontinue Plavix on 08/27/2018. Continue atorvastatin 80 mg nightly. Possible would need an eye patch to prevent the diplopia. If he does use a patch, he was instructed to change the location of the patch every 2-3 hours. Stroke education completed with the patient and spouse at bedside. BP parameters: normotensive at this time. Prevent fevers. He would be a great candidate for PMRU. I will sign off but please contact us for any questions or concerns. We will follow-up with him in 2-3 weeks. Someone from the office will contact him for an appointment. - Discussed plans with Mrs. Calderon (CODING EDUCATOR)
[2018-07-28 16:50] LABS: Magnesium 1.9 mg/dL (1.9-2.7)
[2018-07-28] MEDS ORDERED: Magnesium Sulfate 2 GM IV* 2 GM/50 ML BAG IVPB ONE (17:03)
[2018-07-28 19:15] LABS: TSH (Thyroid Stimulating Horm) 0.66 mcIU/mL (0.34-5.60)
[2018-07-28] MEDS: Enoxaparin(*) 40 MG/0.4 ML SYR SUBCUT SCH (20:21)
[2018-07-29 05:54] LABS: BUN/Creatinine Ratio 18.6 (8-20); Calcium 8.5 mg/dL (8.6-10.3); EGFR African American 137.8 (>60); EGFR Non-African American 113.9 (>60); Potassium 3.6 mmol/L (3.5-5.0)
[2018-07-29] MEDS: Atorvastatin* 80 MG TAB PO SCH (09:35)
[2018-07-29] MEDS: Lisinopril TAB* 10 MG PO SCH (09:35)
[2018-07-29] MEDS: Clopidogrel TAB* 75 MG PO SCH (09:35)
[2018-07-29] MEDS: Hydrochlorothiazide TAB* 25 MG PO SCH (09:35)
[2018-07-29] MEDS: Aspirin 81 mg CHEW TAB* 81 MG TAB.CHEW PO SCH (09:35)
[2018-07-29] MEDS ORDERED: Cyanocobalamin INJ * 1,000 MCG/ML VIAL 1 ML VIAL IM ONE (10:30)
--- NOTE | 2018-07-29 11:01 | PN ---
Subjective Date of Service: 07/29/18 Interval History: Reports improvement in dizziness and nausea.continues to have problems with balance Objective Active Medications: Acetaminophen (Tylenol Tab*) 650 mg PO Q4H PRN PRN Reason: FEVER/PAIN Aspirin (Aspirin 81 Mg Chew Tab*) 81 mg PO DAILY [facility] Last Admin: 07/29/18 09:35 Dose: 81 mg Atorvastatin Calcium (Lipitor*) 80 mg PO DAILY [facility] Last Admin: 07/29/18 09:35 Dose: 80 mg Clopidogrel Bisulfate (Plavix Tab*) 75 mg PO DAILY [facility] Last Admin: 07/29/18 09:35 Dose: 75 mg Cyanocobalamin (Vitamin B12 Tab*) 1,000 mcg PO DAILY [facility] Enoxaparin Sodium (Lovenox(*)) 40 mg SUBCUT Q24H [facility] Last Admin: 07/28/18 20:21 Dose: 40 mg Hydralazine HCl (Apresoline Iv*) 5 mg IV SLOW PU Q6H PRN PRN Reason: Systolic Bp Greater Than: 170 Hydrochlorothiazide (Hydrodiuril Tab*) 12.5 mg PO DAILY [facility] Last Admin: 07/29/18 09:35 Dose: 12.5 mg Lisinopril (Prinivil Tab*) 10 mg PO DAILY [facility]; Protocol Last Admin: 07/29/18 09:35 Dose: 10 mg Ondansetron HCl (Zofran Inj*) 4 mg IV Q4H PRN PRN Reason: NAUSEA/VOMITING Vital Signs - 8 hr 07/29/18 03:29 Temperature 97.3 F Pulse Rate 51 Respiratory 14 Rate Blood Pressure 143/58 (mmHg) O2 Sat by Pulse 97 Oximetry Oxygen Devices in Use Now: None Eyes: No Scleral Icterus Ears/Nose/Mouth/Throat: NL Teeth, Lips, Gums Neck: NL Appearance and Movements; NL JVP Respiratory: Symmetrical Chest Expansion and Respiratory Effort Cardiovascular: NL Sounds; No Murmurs; No JVD Abdominal: NL Sounds; No Tenderness; No Distention Lymphatic: No Cervical Adenopathy Extremities: No Edema Skin: No Rash or Ulcers Neurological: Alert and Oriented x 3, - - 3/5 strength bilateral upper and lower extremity.Has preference to not make eye contact as pt finds it comfortable looking down cross eyed.cranial nerves 2-12 inrtact.gait not tested today.feels like he leans to left Result Diagrams: 07/28/18 07:07 07/29/18 05:20 Additional Lab and Data: Laboratory Results - last 24 hr 07/27/18 07/28/18 07/28/18 20:08 07:07 07:07 WBC 6.4 RBC 4.44 Hgb 13.2 L Hct 37 L MCV 83 MCH 30 MCHC 36 RDW 13 Plt Count 175 MPV 7.2 L Neut % (Auto) 71.3 Lymph % (Auto) 18.4 [place] % (Auto) 7.5 Eos % (Auto) 1.9 Baso % (Auto) 0.9 Absolute Neuts (auto) 4.5 Absolute Lymphs (auto) 1.2 Absolute Monos (auto) 0.5 Absolute Eos (auto) 0.1 Absolute Basos (auto) 0.1 Absolute Nucleated RBC 0.0 Nucleated RBC % 0.1 Sodium 141 Potassium 3.5 Chloride 106 Carbon Dioxide 32 Anion Gap 3 BUN 14 Creatinine 0.71 Est GFR ( Amer) 135.6 Est GFR (Non-Af Amer) 112.1 BUN/Creatinine Ratio 19.7 Glucose 105 H Calcium 8.5 L Urine Color Yellow Urine Appearance Clear Urine pH 6.0 Ur Specific [place] 1.054 H Urine Protein Negative Urine Ketones Negative Urine Blood 1+ A Urine Nitrate Negative Urine Bilirubin Negative Urine Urobilinogen Negative Ur Leukocyte Esterase Negative Urine WBC (Auto) Trace(0-5/hpf) Urine RBC (Auto) 3+(>10/hpf) A Ur Squamous Epith Cells Present A Urine Bacteria Absent Urine Glucose Negative Microbiology and Other Data: . Assess/Plan/Problems-Billing 1. Acute left cerebellar stroke in the posterior inferior cerebellar artery distribution: most likely related to atherosclerotic disease causing vessel thrombosis. - Risk factors: Hypertension, former tobacco abuse (quit 10 days ago), and dyslipidemia - NIHSS: 3 today - Recommendations: DAPT with aspirin 81 mg and Plavix 75 mg x 30 days. Discontinue Plavix on 08/27/2018. Continue atorvastatin 80 mg nightly. Possible would need an eye patch to prevent the diplopia. If he does use a patch, he was instructed to change the location of the patch every 2-3 hours. Stroke education completed with the patient and spouse at bedside. BP parameters: normotensive at this time. Prevent fevers. He would be a great candidate for PMRU. I will sign off but please contact us for any questions or concerns. We will follow-up with him in 2-3 weeks. Someone from the office will contact him for an appointment. - Discussed plans with Mrs. Calderon (NEEDLE LOOM OPERATOR HELPER) - Patient Problems (1) Cerebellar stroke Current Visit: Yes Status: Acute Code(s): I63.9 - CEREBRAL INFARCTION, UNSPECIFIED SNOMED Code(s): 58921015555048222 Comment: - Continues to have fatigue and unsteady gait. Has intermittent episodes of dizziness and double visin. Denies nausea which he was experiencing previously. - Dual antiplatelet therapy x 30 days then ASA alone. Patient states understanding. - PT/OT recommending rehab. PMRU consult ordered - No septum defect or PFO on echo. EF 65 to 70% (2) Hyperlipidemia Current Visit: Yes Status: Acute Code(s): E78.5 - HYPERLIPIDEMIA, UNSPECIFIED SNOMED Code(s): 39328922 Comment: - Previously on 40 mg daily of Atorvastin. - Increased to 80 mg daily on admisson. (3) Hypertension Current Visit: Yes Status: Acute Code(s): I10 - ESSENTIAL (PRIMARY) HYPERTENSION SNOMED Code(s): 84177950 Comment: - Cont HCTZ/Lisinopril which patient was on at home. - Per Dr Marin patient should have normotensive blood pressure goal (4) Tobacco abuse Current Visit: Yes Status: Acute Code(s): Z72.0 - TOBACCO USE SNOMED Code( s): 918523021 Comment: - Discussed importance of quiting. - Reports he is in the process of quiting and has not smoked in 10 to 11 days. (5) DVT prophylaxis Current Visit: Yes Status: Acute Code(s): Z29.9 - ENCOUNTER FOR PROPHYLACTIC MEASURES, UNSPECIFIED SNOMED Code(s): 759596385 Comment: - Lovenox Status and Disposition: Inpatient. TRAMAINE or PMRU at discharge
[2018-07-29] MEDS: Cyanocobalamin TAB* 500 MCG PO SCH (12:33)
[2018-07-29] MEDS: Enoxaparin(*) 40 MG/0.4 ML SYR SUBCUT SCH (21:06)
[2018-07-30 06:14] LABS: ABS Basophils 0.1 10^3/ul (0-0.2); ABS Eosinophils 0.1 10^3/ul (0-0.6); ABS Lymphocytes 1.1 10^3/ul (1.0-4.8); ABS Monocytes 0.5 10^3/ul (0-0.8); ABS Neutrophils 5.7 10^3/ul (1.5-7.7); Eosinophil % 1.3 %; Hematocrit 40 % (42-52); Hemoglobin 14.1 g/dL (14.0-18.0); Lymphocyte % 14.3 %; Mean Corpuscular HGB Conc 36 g/dL (31-36); Mean Corpuscular Hemoglobin 29 pg (27-31); Mean Corpuscular Volume 82 fL (80-94); Mean Platelet Volume 7.2 fL (7.4-10.4); Platelet Count 181 10^3/uL (150-450); Red Blood Count 4.81 10^6 /uL (4.18-5.48); Red Cell Distribution Width 13 % (10-15); White Blood Count 7.4 10^3/uL (3.5-10.8)
[2018-07-30 06:24] LABS: BUN/Creatinine Ratio 20.3 (8-20); Calcium 8.9 mg/dL (8.6-10.3); EGFR African American 129.3 (>60); EGFR Non-African American 106.8 (>60); Potassium 3.6 mmol/L (3.5-5.0)
[2018-07-30] MEDS: Aspirin 81 mg CHEW TAB* 81 MG TAB.CHEW PO SCH (09:11)
[2018-07-30] MEDS: Atorvastatin* 80 MG TAB PO SCH (09:11)
[2018-07-30] MEDS: Lisinopril TAB* 10 MG PO SCH (09:11)
[2018-07-30] MEDS: Cyanocobalamin TAB* 500 MCG PO SCH (09:11)
[2018-07-30] MEDS: Hydrochlorothiazide TAB* 25 MG PO SCH (09:13)
[2018-07-30] MEDS: Clopidogrel TAB* 75 MG PO SCH (09:15)
--- NOTE | 2018-07-30 14:31 | PN ---
Subjective Date of Service: 07/30/18 Interval History: Reports some improvement in nausea and dizziness.Vomited last night once. Balance not steady Objective Active Medications: Acetaminophen (Tylenol Tab*) 650 mg PO Q4H PRN PRN Reason: FEVER/PAIN Aspirin (Aspirin 81 Mg Chew Tab*) 81 mg PO DAILY [facility] Last Admin: 07/30/18 09:11 Dose: 81 mg Atorvastatin Calcium (Lipitor*) 80 mg PO DAILY [facility] Last Admin: 07/30/18 09:11 Dose: 80 mg Clopidogrel Bisulfate (Plavix Tab*) 75 mg PO DAILY [facility] Last Admin: 07/30/18 09:15 Dose: 75 mg Cyanocobalamin (Vitamin B12 Tab*) 1,000 mcg PO DAILY [facility] Last Admin: 07/30/18 09:11 Dose: 1,000 mcg Enoxaparin Sodium (Lovenox(*)) 40 mg SUBCUT Q24H [facility] Last Admin: 07/29/18 21:06 Dose: 40 mg Hydralazine HCl (Apresoline Iv*) 5 mg IV SLOW PU Q6H PRN PRN Reason: Systolic Bp Greater Than: 170 Last Admin: 07/29/18 21:06 Dose: 5 mg Hydrochlorothiazide (Hydrodiuril Tab*) 12.5 mg PO DAILY [facility] Last Admin: 07/30/18 09:13 Dose: 12.5 mg Lisinopril (Prinivil Tab*) 10 mg PO DAILY [facility]; Protocol Last Admin: 07/30/18 09:11 Dose: 10 mg Ondansetron HCl (Zofran Inj*) 4 mg IV Q4H PRN PRN Reason: NAUSEA/VOMITING Vital Signs - 8 hr 07/30/18 07/30/18 08:00 11:15 Temperature 97.8 F Pulse Rate 53 Respiratory 16 16 Rate Blood Pressure 148/76 (mmHg) O2 Sat by Pulse 97 Oximetry Oxygen Devices in Use Now: None Eyes: No Scleral Icterus Neck: NL Appearance and Movements; NL JVP Respiratory: Symmetrical Chest Expansion and Respiratory Effort, Clear to Auscultation Cardiovascular: NL Sounds; No Murmurs; No JVD Abdominal: NL Sounds; No Tenderness; No Distention Extremities: No Edema Neurological: Alert and Oriented x 3, - - cranial nerves intact. good strength bilateral upper and le. Cross eyed. Gait and balance not tested Result Diagrams: 07/30/18 05:52 07/30/18 05:53 Additional Lab and Data: Laboratory Results - last 24 hr 07/27/18 07/28/18 07/28/18 20:08 07:07 07:07 WBC 6.4 RBC 4.44 Hgb 13.2 L Hct 37 L MCV 83 MCH 30 MCHC 36 RDW 13 Plt Count 175 MPV 7.2 L Neut % (Auto) 71.3 Lymph % (Auto) 18.4 [place] % (Auto) 7.5 Eos % (Auto) 1.9 Baso % (Auto) 0.9 Absolute Neuts (auto) 4.5 Absolute Lymphs (auto) 1.2 Absolute Monos (auto) 0.5 Absolute Eos (auto) 0.1 Absolute Basos (auto) 0.1 Absolute Nucleated RBC 0.0 Nucleated RBC % 0.1 Sodium 141 Potassium 3.5 Chloride 106 Carbon Dioxide 32 Anion Gap 3 BUN 14 Creatinine 0.71 Est GFR ( Amer) 135.6 Est GFR (Non-Af Amer) 112.1 BUN/Creatinine Ratio 19.7 Glucose 105 H Calcium 8.5 L Urine Color Yellow Urine Appearance Clear Urine pH 6.0 Ur Specific [place] 1.054 H Urine Protein Negative Urine Ketones Negative Urine Blood 1+ A Urine Nitrate Negative Urine Bilirubin Negative Urine Urobilinogen Negative Ur Leukocyte Esterase Negative Urine WBC (Auto) Trace(0-5/hpf) Urine RBC (Auto) 3+(>10/hpf) A Ur Squamous Epith Cells Present A Urine Bacteria Absent Urine Glucose Negative Microbiology and Other Data: . Assess/Plan/Problems-Billing - Patient Problems (1) Cerebellar stroke Current Visit: Yes Status: Acute Code(s): I63.9 - CEREBRAL INFARCTION, UNSPECIFIED SNOMED Code(s): 82307483448586810 Comment: - Continues to have fatigue and unsteady gait. Has intermittent episodes of dizziness and double vision. Nausea present - Dual antiplatelet therapy x 30 days then ASA alone. Patient states understanding. Plavix to be held on 08/27/18. Pl refer to dr marin's last note for complete recs - PT/OT recommending rehab. PMRU consult ordered - No septum defect or PFO on echo. EF 65 to 70% (2) Hyperlipidemia Current Visit: Yes Status: Acute Code(s): E78.5 - HYPERLIPIDEMIA, UNSPECIFIED SNOMED Code(s): 39056946 Comment: - Previously on 40 mg daily of Atorvastin. - Increased to 80 mg daily on admisson. (3) Hypertension Current Visit: Yes Status: Acute Code(s): I10 - ESSENTIAL (PRIMARY) HYPERTENSION SNOMED Code(s): 61246289 Comment: - Cont HCTZ/Lisinopril which patient was on at home. - Per Dr Marin patient should have normotensive blood pressure goal (4) Tobacco abuse Current Visit: Yes Status: Acute Code(s): Z72.0 - TOBACCO USE SNOMED Code( s): 450218046 Comment: - Discussed importance of quiting. - Reports he is in the process of quiting and has not smoked in 10 to 11 days. (5) DVT prophylaxis Current Visit: Yes Status: Acute Code(s): Z29.9 - ENCOUNTER FOR PROPHYLACTIC MEASURES, UNSPECIFIED SNOMED Code(s): 421557743 Comment: - Lovenox Status and Disposition: Inpatient. TRAMAINE or PMRU at discharge
[2018-07-30] MEDS: Enoxaparin(*) 40 MG/0.4 ML SYR SUBCUT SCH (21:12)
[2018-07-31 06:56] LABS: Calcium 9.5 mg/dL (8.6-10.3); Potassium 3.6 mmol/L (3.5-5.0)
[2018-07-31 06:58] LABS: ABS Basophils 0.1 10^3/ul (0-0.2); ABS Eosinophils 0.2 10^3/ul (0-0.6); ABS Lymphocytes 1.3 10^3/ul (1.0-4.8); ABS Monocytes 0.6 10^3/ul (0-0.8); ABS Neutrophils 5.3 10^3/ul (1.5-7.7); Eosinophil % 2.3 %; Hematocrit 41 % (42-52); Hemoglobin 15.5 g/dL (14.0-18.0); Lymphocyte % 17.2 %; Mean Corpuscular HGB Conc 37 g/dL (31-36); Mean Corpuscular Hemoglobin 31 pg (27-31); Mean Corpuscular Volume 82 fL (80-94); Mean Platelet Volume 7.1 fL (7.4-10.4); Nucleated Red Blood Cells % 0.5; Platelet Count 179 10^3/uL (150-450); Red Blood Count 5.06 10^6 /uL (4.18-5.48); Red Cell Distribution Width 13 % (10-15); White Blood Count 7.4 10^3/uL (3.5-10.8)
[2018-07-31 07:02] LABS: BUN/Creatinine Ratio 22.8 (8-20); EGFR African American 119.9 (>60); EGFR Non-African American 99.1 (>60)
[2018-07-31] MEDS: Aspirin 81 mg CHEW TAB* 81 MG TAB.CHEW PO SCH (08:49)
[2018-07-31] MEDS: Hydrochlorothiazide TAB* 25 MG PO SCH (08:49)
[2018-07-31] MEDS: Atorvastatin* 80 MG TAB PO SCH (08:49)
[2018-07-31] MEDS: Cyanocobalamin TAB* 500 MCG PO SCH (08:49)
[2018-07-31] MEDS: Lisinopril TAB* 10 MG PO SCH (08:49)
[2018-07-31] MEDS: Clopidogrel TAB* 75 MG PO SCH (08:49)
--- NOTE | 2018-07-31 13:39 | PN ---
Subjective Date of Service: 07/31/18 Interval History: Pt feels well, still ataxic and c/o diplopia and unsteady gait, but ambulating with a roller walker Objective Active Medications: Acetaminophen (Tylenol Tab*) 650 mg PO Q4H PRN PRN Reason: FEVER/PAIN Aspirin (Aspirin 81 Mg Chew Tab*) 81 mg PO DAILY [facility] Last Admin: 07/31/18 08:49 Dose: 81 mg Atorvastatin Calcium (Lipitor*) 80 mg PO DAILY [facility] Last Admin: 07/31/18 08:49 Dose: 80 mg Clopidogrel Bisulfate (Plavix Tab*) 75 mg PO DAILY [facility] Last Admin: 07/31/18 08:49 Dose: 75 mg Cyanocobalamin (Vitamin B12 Tab*) 1,000 mcg PO DAILY [facility] Last Admin: 07/31/18 08:49 Dose: 1,000 mcg Enoxaparin Sodium (Lovenox(*)) 40 mg SUBCUT Q24H [facility] Last Admin: 07/30/18 21:12 Dose: 40 mg Hydralazine HCl (Apresoline Iv*) 5 mg IV SLOW PU Q6H PRN PRN Reason: Systolic Bp Greater Than: 170 Last Admin: 07/29/18 21:06 Dose: 5 mg Hydrochlorothiazide (Hydrodiuril Tab*) 12.5 mg PO DAILY [facility] Last Admin: 07/31/18 08:49 Dose: 12.5 mg Lisinopril (Prinivil Tab*) 10 mg PO DAILY [facility]; Protocol Last Admin: 07/31/18 08:49 Dose: 10 mg Ondansetron HCl (Zofran Inj*) 4 mg IV Q4H PRN PRN Reason: NAUSEA/VOMITING Vital Signs - 8 hr 07/31/18 07/31/18 07/31/18 08:00 09:17 11:00 Temperature 97.1 F 96.9 F Pulse Rate 49 47 Respiratory 16 16 16 Rate Blood Pressure 131/82 142/51 (mmHg) O2 Sat by Pulse 99 98 Oximetry Oxygen Devices in Use Now: None Appearance: 62 yo M in NAD, AAOx3 Eyes: No Scleral Icterus, PERRLA Ears/Nose/Mouth/Throat: NL Teeth, Lips, Gums, Mucous Membranes Moist Neck: NL Appearance and Movements; NL JVP, Trachea Midline Respiratory: Symmetrical Chest Expansion and Respiratory Effort, Clear to Auscultation Cardiovascular: NL Sounds; No Murmurs; No JVD, RRR Abdominal: NL Sounds; No Tenderness; No Distention Lymphatic: No Cervical Adenopathy Extremities: No Edema, No Clubbing, Cyanosis Skin: No Rash or Ulcers, No Nodules or Sclerosis Neurological: Alert and Oriented x 3, NL Muscle Strength and Tone, - - speech clear, mild ataxia noted, wide unsteady gait, pt c/o diplopia when looking up and to L, horizontal nystagmus noted on eval when looking to left Result Diagrams: 07/31/18 05:56 07/31/18 05:56 Additional Lab and Data: Laboratory Results - last 24 hr 07/27/18 07/28/18 07/28/18 20:08 07:07 07:07 WBC 6.4 RBC 4.44 Hgb 13.2 L Hct 37 L MCV 83 MCH 30 MCHC 36 RDW 13 Plt Count 175 MPV 7.2 L Neut % (Auto) 71.3 Lymph % (Auto) 18.4 [place] % (Auto) 7.5 Eos % (Auto) 1.9 Baso % (Auto) 0.9 Absolute Neuts (auto) 4.5 Absolute Lymphs (auto) 1.2 Absolute Monos (auto) 0.5 Absolute Eos (auto) 0.1 Absolute Basos (auto) 0.1 Absolute Nucleated RBC 0.0 Nucleated RBC % 0.1 Sodium 141 Potassium 3.5 Chloride 106 Carbon Dioxide 32 Anion Gap 3 BUN 14 Creatinine 0.71 Est GFR ( Amer) 135.6 Est GFR (Non-Af Amer) 112.1 BUN/Creatinine Ratio 19.7 Glucose 105 H Calcium 8.5 L Urine Color Yellow Urine Appearance Clear Urine pH 6.0 Ur Specific [place] 1.054 H Urine Protein Negative Urine Ketones Negative Urine Blood 1+ A Urine Nitrate Negative Urine Bilirubin Negative Urine Urobilinogen Negative Ur Leukocyte Esterase Negative Urine WBC (Auto) Trace(0-5/hpf) Urine RBC (Auto) 3+(>10/hpf) A Ur Squamous Epith Cells Present A Urine Bacteria Absent Urine Glucose Negative Microbiology and Other Data: . Assess/Plan/Problems-Billing 62 yo with acute left cerebellar stroke in the posterior inferior cerebellar artery distribution: most likely related to atherosclerotic disease causing vessel thrombosis. - Patient Problems (1) Cerebellar stroke Comment: - Continues to have fatigue and unsteady gait. Has intermittent episodes of dizziness and double vision. Nausea present intermittently - Dual antiplatelet therapy x 30 days then ASA alone. Patient states understanding. Plavix to be held on 08/27/18. Pl refer to Dr. Marin's last note for complete recs - PT/OT recommending rehab. PMRU consult - No septum defect or PFO on echo. EF 65 to 70% (2) Hyperlipidemia Comment: - Previously on 40 mg daily of Atorvastin. - Increased to 80 mg daily on admisson. (3) Hypertension Comment: -controled - Cont HCTZ/Lisinopril which patient was on at home. - Per Dr Marin patient should have normotensive blood pressure goal (4) Tobacco abuse Comment: - Discussed importance of quiting. - Reports he is in the process of quiting and has not smoked in 10 to 11 days. (5) DVT prophylaxis Comment: - Lovenox Status and Disposition: Inpatient. TRAMAINE or PMRU at discharge
[2018-07-31] MEDS: Enoxaparin(*) 40 MG/0.4 ML SYR SUBCUT SCH (20:45)
[2018-08-01] MEDS: Clopidogrel TAB* 75 MG PO SCH (08:47)
[2018-08-01] MEDS: Hydrochlorothiazide TAB* 25 MG PO SCH (08:47)
[2018-08-01] MEDS: Cyanocobalamin TAB* 500 MCG PO SCH (08:47)
[2018-08-01] MEDS: Aspirin 81 mg CHEW TAB* 81 MG TAB.CHEW PO SCH (08:47)
[2018-08-01] MEDS: Atorvastatin* 80 MG TAB PO SCH (08:47)
[2018-08-01] MEDS: Lisinopril TAB* 10 MG PO SCH (08:48)
[2018-08-01 14:17] VITALS: BP 127/58
--- NOTE | 2018-08-01 17:18 | DS ---
CC: Dr. Ly; Dr. Marin* DISCHARGE SUMMARY: DATE OF ADMISSION: 07/27/18 DATE OF DISCHARGE: 08/01/18 PRIMARY CARE PROVIDER: Dr. Ly. DISPOSITION AT DISCHARGE: Discharged to home. CONDITION AT DISCHARGE: Stable. 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 SECONDARY DIAGNOSES: 1. Dyslipidemia. 2. Hypertension. 3. History of tobacco use. The patient quit smoking 2 weeks prior to presentation. MEDICATIONS AT DISCHARGE: Include: 1. Plavix 75 mg daily for a month and stop. 2. Lipitor 80 mg a day. 3. Aspirin 81 mg daily. 4. Lisinopril/hydrochlorothiazide 10/12.5 mg daily. CONSULTATION DURING HOSPITAL STAY: Included Dr. Marin from Neurology. LABORATORY DATA AND STUDIES PERFORMED DURING THE HOSPITAL STAY: On 07/31/18, white blood cell count of 7.4, hemoglobin of 15.5, hematocrit of 41, and platelets of 179. Sodium was 123, potassium 3.6, chloride 101, carbonate dioxide 31, BUN 18, creatinine 2.79. The patient's vitamin B12 level was 187, TSH of 0.66. Liver function tests were within normal limits on admission. The patient's brain MRI was actually noted outpatient on 07/26/18 and showed, impression: "Multiple foci of restricted diffusion within the left inferior cerebellar extending to the left middle cerebellar peduncle consistent with subacute nonhemorrhagic infarct." Head CTA obtained on 07/27/18, impression: "There is an occlusion of intracranial segment of the left vertebral artery and little to no filling of the left posterior and inferior cerebral artery. This corresponds with the arterial distribution of the left cerebellum where multifocal infarcts were identified on the previous MRI. There was options of the left posterior communicating artery causing the [place] to be incomplete. This could be due to thrombotic occlusion or congenital absence. There is mixed attenuation atherosclerosis at the bilateral carotid bulbs extending into the inferior portion of the bilateral internal carotid arteries causing approximately 43 degree narrowing on the right and 50 degree narrowing on the left." Transthoracic echocardiogram showed an EF of 65% to 70% with wall thickness of left ventricle mildly increased and the ventricle appeared to be hyperdynamic. Left atrium mildly dilated and right atrium mildly dilated, functionally benign heart valve. No patent foramen ovale identified. HOSPITALIZATION COURSE: Anjel Reyes is a 62-year-old male with a history of smoking, hypertension, dyslipidemia, who noted that his left eye was crossed occasionally ever since May of 2018, but thought it would go away. Eventually , he went to see his eye doctor, who referred him to his primary care provider. On 07/26/18, his primary care provider obtained an MRI of the brain, which showed multiple ischemic infarcts at the cerebellum. The patient was admitted with ataxia left eye disconjugate gaze and diplopia. He was evaluated with transthoracic echocardiogram with negative bubble study and CT angiogram did show left vertebral artery occlusion that corresponded with patient stroke. The patient was placed on aspirin and Plavix and as per Dr. Marin, he was recommended to continue Plavix for 1 month and then discontinue. His LDL during his evaluation into hospital was 107 and his Lipitor from home was increased to 80 mg daily. The patient also was noted to have low normal vitamin B12 level and he was placed on oral supplement. The patient underwent physical therapy evaluation and by discharge, he was ambulating independently, but with the use of a walker though. He also had diplopia on looking up and to the left side and mildly disconjugate gaze on evaluation. He is going to follow up with physical therapy with visiting nurses at home. Please note that the patient opted for staying in a physiotherapy unit for evaluation, but unfortunately in conjunction with his insurance approval deemed to be impossible. Apparently, the patient's insurance did not approve this stay. At that point, short-term rehabilitation was offered to the patient versus going home. The patient opted to go home, felt that he would feel better with continuation of getting stronger at home. He is recommended to follow with his primary care provider in 4 to 7 days, with Dr. Marin in a month. PHYSICAL EXAM: At the time of discharge, blood pressure 127/58, heart rate of 56 and regular, respiratory rate 16, oxygen saturation 98% on room air, temperature of 97.8. General: The patient is a very pleasant 61-year-old male who is in no acute distress. Alert, awake, and oriented x3. HEENT: Head atraumatic, normocephalic. Eyes: Pupils are equal and reactive to light and accommodation. Left eye appears to have disconjugate gaze, mild nystagmus with a fast beat towards the left noted. The patient also has continuation of mild ataxia, but is able to ambulate by himself with a roller walker. Neck: Supple. No JVD. No bruits bilaterally. Respiratory: Clear to auscultation bilaterally. Abdomen: Soft and nontender. Bowel sounds are present in all 4 quadrants. Extremities: There is no edema. Pulses +2 bilaterally. There is no clubbing or cyanosis. On neuro evaluation, please note above evaluation of the patient's eyes. The patient was mildly ataxic during evaluation and able to ambulate with the walker, not able to ambulate independently yet. Apart from disconjugate gaze, face is symmetrical and remaining cranial nerves are grossly intact. Speech is clear. Motor strength is 5/5 bilaterally. Sensation is grossly intact. CONDITION AT DISCHARGE: Stable. DISPOSITION AT DISCHARGE: Discharge to home. Please note that this is a short summary of the patient's hospital stay. Please refer to further medical records for details. TIME SPENT: Approximately 45 minutes was spent on the patient's discharge. [id number]/CPS #: [id number] MTDD
== END 2018-08-01 16:08 | disposition home health service (06) | DRG 45 ==
LOC: ED 14:49 → MEDTELE 19:55 → OBSVTOIN 07-28 14:00 → MEDTELE 08-01 15:30
PROVIDERS: ADMIT Internal Medicine; ATTEND Internal Medicine
DX: I63.212 Cerebral infarction due to unspecified occlusion or stenosis of left vertebral artery (principal); I47.2 Ventricular tachycardia; E78.5 Hyperlipidemia, unspecified; I10 Essential (primary) hypertension; R26.81 Unsteadiness on feet; H53.2 Diplopia; F17.210 Nicotine dependence, cigarettes, uncomplicated; R29.703 NIHSS score 3; Z79.899 Other long term (current) drug therapy; Z82.49 Family history of ischemic heart disease and other diseases of the circulatory system
CPT/HCPCS: 36415; 70450; 70496; 70498; 71045; 80048; 80053; 80061; 81003; 81015; 82607; 83605; 83735; 84443; 84484; 85025; 85610; 85730; 87086; 93005; 93306; 99285; A9270-GY; J0360; J1650; J2765; J3420; J3475; Q9967